=== PATIENT | female | born 1970 | race Caucasian/White ===

== ENCOUNTER → 2020-04-08 13:26 | Outpatient (BNVA) | payer MEDICAID, SELFPAY | PROVIDERS: PCP Family Medicine; Visit Provider Orthopaedic Surgery | DX: R20.0 Anesthesia of skin (principal); R20.2 Paresthesia of skin | CPT/HCPCS: 99212 ==

== ENCOUNTER 2020-04-26 14:18 | Emergency (ER) | payer MEDICAID, SELFPAY ==
[2020-04-26 14:30] VITALS: BP 136/58; PULSE 84; RESP 18; TEMP 37.1; O2SAT 97; BMI 35.4
--- NOTE | 2020-04-26 15:14 | CT_ITS ---
EXAMINATION: CT HEAD WITHOUT CONTRAST CLINICAL INFORMATION: Headache x 2 weeks. COMPARISON: None TECHNIQUE: Contiguous axial imaging was performed from the skull base to vertex without intravenous administration of contrast. This CT examination was performed using dose optimization techniques as appropriate, variously including the following: *Automated exposure control *Adjustment of mA and/or kV according to patient size (this includes techniques or standardized protocols for targeted exams where dose is matched to indication/reason for exam; i.e. extremities or head) *Use of iterative reconstruction technique DLP: 768 mGy-cm FINDINGS: There is no evidence of acute intracranial hemorrhage or territorial infarction. No abnormal mass effect or midline shift is seen. [place] to white matter differentiation is well preserved. No extra-axial fluid collections are identified. The ventricles are normal in size. There is no abnormal attenuation within the brain parenchyma. The osseous structures and soft tissues are normal. The mastoid air cells and visualized portions of the paranasal sinuses are well aerated. CT/CT head/brain wo con IMPRESSION: No acute intracranial process seen.
--- NOTE | 2020-04-26 15:15 | ED_ITS ---
HPI - Headache General Chief Complaint: Headache Stated Complaint: HEADACHE Time Seen by Provider: 04/26/20 14:40 History of Present Illness HPI Narrative: 49-year-old female who presents to the emergency department for evaluation of headache x2 weeks. The patient states that she has chronic headaches secondary to degenerative joint disease/disc disease of her neck. She states that she often gets pain in her neck and the back of her head chronically. She states that over the past 2 weeks she has had a gradual onset of a headache which is different than her usual headaches. She states that she has a band like pressure sensation around the top of her head. She states that this pain came on gradually over time and has gotten progressively worse. She states that the pain is 8/10 at its worst. She states the pain is a constant pressure-like pain. She had no associated nausea, vomiting, fever or chills. She states that she gets occasional tingling as a numbness in both of her arms. The patient also has been experiencing right lower jaw pain secondary to infected tooth. She did see her dentist today and had dental x-rays. She was told by her dentist that she does have a tooth infection and her dentist did prescribe an antibiotic for the patient which she has not picked up yet. The patient did talk to her PCP was concerned about the change in the patient's headache and refer the patient to the emergency department for evaluation. Patient states that she does have chronic pain secondary to degenerative joint and arthritis. She states that she takes ibuprofen, baclofen, gabapentin, oxycodone for her pain, and despite taking these medications she has not got any relief of her headache Related Data Previous Rx's Medication Instructions Recorded metoclopramide HCl [Reglan] 10 mg PO Q6H PRN #10 tab 04/26/20 Allergies Allergy/AdvReac Type Severity Reaction Status Date / Time Penicillins [PENICILLINS] Allergy Intermediate SWELLING Verified 04/26/20 14:30 Review of Systems Review of Systems: Yes all other systems are reviewed and are negative Constitutional: Constitutional: Reports as per HPI Eyes: Eyes: Reports as per HPI ENT: Reports as per HPI Cardiovascular: Cardiovascular: Reports as per HPI Respiratory: Respiratory: Reports as per HPI Gastrointestinal: Gastrointestinal: Reports as per HPI Genitourinary: Genitourinary: Reports as per HPI Musculoskeletal: Musculoskeletal: Reports as per HPI Integumentary/Breasts: Skin/Breast: Reports as per HPI Neurologic: Reports as per HPI and Reports Abnormal speech present Psychiatric: Psychiatric: Reports as per HPI Allergic/Immunologic: Allergic/Immunologic: Reports as per HPI PENDING SALE TO [facility] Past Medical History Medical History (Updated 04/26/20 @ 16:14 by Michael Gray MD) Hyperlipemia Hypertension NIDDY (non-insulin dependent diabetes mellitus in young) Surgical History (Updated 04/26/20 @ 14:31 by Ynes Beckham) History of hysterectomy Social History Social History Alcohol intake: never Smoking Status: Current every day smoker Use of substances other than those prescribed or required for medical reasons: No Advance Directives: No Advance Directives Information Provided: No Physical Exam Vital Signs: Vital Signs: Last Vital Signs Temp 98.7 F 04/26/20 14:30 Pulse 84 04/26/20 14:30 Resp 18 04/26/20 14:30 BP 136/58 L 04/26/20 14:30 Pulse Ox 97 04/26/20 14:30 Body Mass Index 35.4 Const: General: cooperative, no acute distress, alert and awake Orientation/consciousness: oriented to person and oriented to place Limitations: no limitations HENMT: Head: Yes normal to inspection, Yes normocephalic and Yes atraumatic Ears: external ears normal Teeth image: 1. Tender to palpation, no obvious dental caries Eyes: General: appearance normal, both eyes and all related structures Periorbital: periorbital findings normal Eyelids: Yes eyelids normal Conjunctivae: conjunctivae normal Sclerae: sclerae normal Corneas: corneas normal Pupils: Equal, round and reactive pupils present Direct Ophthalmoscopy: normal light reflex Neck: Neck: Yes normal visual inspection and Yes supple Lymphatic: no lymphadenopathy noted Chest: Chest palpation & inspection: normal inspection of the chest and normal palpation of entire chest wall Resp: Effort & Inspection: normal respiratory effort, abnormal respiratory pa ttern, no audible wheezes and no respiratory distress Auscultation: clear to auscultation bilaterally, no crackles, no rales, no rhonchi and no wheezes Cardio: Rate: regular rate Rhythm: regular rhythm Heart sounds: S1 normal heart sound present, S2 normal heart sound present and Murmur heart sound present GI: Inspection: No distended Palpation (GI): Soft to palpation, nontender, no guarding and No hepatosplenomegaly present Auscultation: normal bowel sounds : General: Yes no CVA tenderness Back/Spine/Pelvis: Back: no CVA tenderness Skin: General skin exam: no rashes or lesions noted Lesions: no lesions Rashes: no rashes Wounds: no wounds Neuro: General: oriented to person and oriented to place Cranial nerves: Yes CN's II-XII intact bilaterally, Yes Equal, round and reactive pupils present, Yes Bilaterally intact EOM present and Yes Midline tongue present Cognition (Neuro): normal cognition Speech: Abnormal speech present Gait exam (Neuro): Normal gait present Motor exam (neuro): 5/5 motor strength present throughout Extrem: General: Yes normal to inspection, Yes full ROM, Yes no pedal edema and Yes no calf tenderness Psych: Appearance: grossly normal Mental Status: mental status grossly normal Speech and movement: Clear speech present Affect: normal affect Thought process: Normal thought process present Course Course Course Narrative: The patient's CT scan of the brain revealed no acute process. My impression is that the patient's pain is related to migraine like syndrome triggered by her chronic pain and possibly her dental infection. The patient will be started on the following migraine regimen: Regular and 10 mg orally, Tylenol 1000 mg orally and hydroxyzine 25 mg orally every 6 hours. I also advised the patient to complete her antibiotic as prescribed per her dentist. MDM - Headache MDM Narrative Medical decision making narrative: 49-year-old female who presents emergency department for evaluation of gradual onset of a constant headache x2 weeks which is different from her usual headache syndrome and with a dental infection that was diagnosed by her dentist today. Physical examination did reveal tenderness with palpation of tooth number 32 but no obvious dental caries and no significant gingival swelling or evidence of abscess and a normal neurologic exam. At this time I suspect the patient's headache is related to her dental infection but not secondary to dental abscess. Given these severity and persistence of this headache, a CT scan of brain will be ordered to rule out bleed, mass effect or stroke as the cause for headache. The patient drove herself to the emergency department and does not want any pain medications at this time. Discharge Plan Discharge Clinical Impression: Headache Qualifiers: Headache type: unspecified Headache chronicity pattern: acute headache Intractability: not intractable Qualified Code(s): R51.9 - Headache, unspecified Patient Disposition: Home, Self-Care Instructions: Acute Headache (ED) Additional Instructions: The CT scan of your brain was normal, this is reassuring. Take the following medications together every 6 hours as needed for headache: Reglan 10 mg orally, extra-strength Tylenol 500 mg 2 pills orally, hydroxyzine 25 mg 1 pill orally. This combination of medications is usually very good for headaches but will make you very sleepy. After taking these medications, lay down in a dark quiet room for at least 1 hour and that should help the headache go away. Take the antibiotics as prescribed by your dentist. Follow-up with your doctor in 2 days for re-evaluation. Please return to the emergency department if her symptoms get worse or if you develop any new symptoms that are concerning to you. Prescriptions: New metoclopramide HCl [Reglan] 10 mg tablet 10 mg PO Q6H PRN (Reason: Headache, nausea, vomiting) Qty: 10 RF: 0
[2020-04-26 16:28] VITALS: BP 149/74; PULSE 96; RESP 19; TEMP 36.4; O2SAT 98
== END 2020-04-26 16:56 | disposition home or self-care (01) ==
PROVIDERS: Emergency Provider Emergency Medicine Emergency Medical Services; PCP Family Medicine
DX: R51.9 Headache, unspecified (principal); Z79.899 Other long term (current) drug therapy
CPT/HCPCS: 70450; 99284

== ENCOUNTER 2020-07-01 07:46 | Outpatient (REF) | payer MEDICAID, SELFPAY ==
--- NOTE | 2020-07-01 07:54 | EMG_ITS ---
Bilateral median and ulnar motor and sensory studies were performed. Bilateral radial sensory studies were performed. Paraspinal muscles were tested and some limb muscles were tested with a needle. IMPRESSION: 1. Moderate to severe bilateral median neuropathy across carpal tunnel, which was somewhat worse compared to her previous study in January of 2019. 2. Right Fabien Constantin anastomosis, normal variant. 3. No evidence of acute cervical radiculopathy. MD JACKELIN Mcgarry/NISH / [id number]
== END 2020-07-01 07:47 | disposition home or self-care (01) ==
LOC: HO.NEURO 07:46
PROVIDERS: PCP Family Medicine; Visit Provider Orthopaedic Surgery
DX: R20.0 Anesthesia of skin (principal); R20.2 Paresthesia of skin
CPT/HCPCS: 95886; 95911

== ENCOUNTER 2020-07-19 11:36 | Outpatient (REF) | payer MEDICAID, SELFPAY ==
--- NOTE | ~2020-07-19 | XR_ITS ---
EXAMINATION: XR THORACOLUMBAR SPINE CLINICAL INFORMATION: Back pain COMPARISON: None TECHNIQUE: 2 views of the thoracic spine FINDINGS: Bone alignment is normal. No fracture or dislocation is seen. There is multilevel degenerative spondylosis. Disc spaces are normal. There are postsurgical changes to the lower cervical spine. Paraspinal soft tissues are normal. XR/XR thoracic spine 2V IMPRESSION: Multilevel degenerative spondylosis.
== END 2020-07-19 11:37 | disposition home or self-care (01) ==
LOC: HO.XRAY 11:36
PROVIDERS: PCP Family Medicine; Visit Provider Family Medicine
DX: M54.9 Dorsalgia, unspecified (principal)
CPT/HCPCS: 72070

== ENCOUNTER → 2020-07-21 10:24 | Outpatient (BNVA) | payer MEDICAID, SELFPAY | PROVIDERS: PCP Family Medicine; Visit Provider Orthopaedic Surgery | DX: G56.02 Carpal tunnel syndrome, left upper limb (principal); G56.01 Carpal tunnel syndrome, right upper limb | CPT/HCPCS: 99212 ==

== ENCOUNTER 2020-08-12 12:49 | Day surgery (SDC) | payer MEDICAID, SELFPAY ==
--- NOTE | 2020-08-12 11:55 | W.PM.OPN ---
Operative Note Operative Note Date of Service: 08/12/20 Narrative: Preop diagnosis: 1. Right Carpal tunnel syndrome Postop diagnosis: 1. Right Carpal tunnel syndrome Procedure: 1. Right Carpal tunnel release Surgeon: Ashley Villagran MD Anesthesia: local block using 1% lidocaine with epinephrine Findings: Thickened transverse carpal ligament. EBL: Less than 5 mL Specimens: None Complications: None Disposition: Brought to recovery room in stable condition Plan: Follow-up for 7-10 days for wound check and suture removal Indications: The patient is 50 years old, with right carpal tunnel syndrome that has been unresponsive to nonoperative management. The risks and benefits of operative treatment including but not limited to risk of damage to blood vessels, nerves, tendons, infection, persistent pain, persistent symptoms, or possible need for additional surgery were discussed with the patient and the patient wishes to proceed with surgery. Procedure: Once consent was obtained a local block was performed using a combination of 1% lidocaine with epinephrine. The patient was then brought back to the operating suite and placed on the operative table in supine position. A tourniquet was applied to the proximal aspect of the right upper extremity and the limb was prepped and draped in a standard surgical fashion. Once assured that we had a good block, a 1.5 cm longitudinal incision was made centered over the right carpal tunnel. The incision was made through the skin to the subcutaneous tissues using a #15 blade. Dissection was made down to the level of the transverse carpal ligament with care being taken to protect the palmar cutaneous nerve. Once the transverse carpal ligament was clearly visualized, a longitudinal incision was made in the transverse carpal ligament 1st using a #15 blade, then using tenotomy scissors under direct visualization. Care was taken to look for and protect the motor branch of the median nerve when seen in this area. Once satisfied with our carpal tunnel release the wound was copiously irrigated with normal saline and hemostasis was obtained with a brief period of local pressure. The skin edges were reapproximated with some 5.0 nylon suture material and a sterile dressing was applied. The patient appears to have tolerated the procedure well and with no complications. All digits were well vascularized at the conclusion of the case.
[2020-08-12 13:07] VITALS: BP 115/50; PULSE 91; RESP 18; TEMP 36.9; O2SAT 97; BMI 38.9
[2020-08-12 16:37] VITALS: BP 145/79; PULSE 81; RESP 16; TEMP 36.6; O2SAT 97
--- NOTE | 2020-08-12 16:46 | MHC.SHP ---
Pre-Procedural Eval Section B Chief Complaint: carpal tunnel syndrome,right Allergies: Allergies Allergy/AdvReac Type Severity Reaction Status Date / Time Penicillins [PENICILLINS] Allergy Intermediate SWELLING Verified 08/12/20 13:00 Plan I have reviewed the history and physical and performed a pertinent physical examination on my patient. No changes have occurred unless specified.
== END 2020-08-12 16:46 | disposition home or self-care (01) ==
PROVIDERS: PCP Family Medicine; Visit Provider Orthopaedic Surgery
PROC: (CPT 64721; principal; 2020-08-12 15:00)
DX: G56.01 Carpal tunnel syndrome, right upper limb (principal); I10 Essential (primary) hypertension; F31.9 Bipolar disorder, unspecified; E11.9 Type 2 diabetes mellitus without complications; Z79.84 Long term (current) use of oral hypoglycemic drugs; F17.210 Nicotine dependence, cigarettes, uncomplicated; Z88.0 Allergy status to penicillin; Z79.899 Other long term (current) drug therapy
CPT/HCPCS: 64721

== ENCOUNTER 2020-08-20 18:00 | Outpatient (REF) | payer MEDICAID, SELFPAY ==
--- NOTE | ~2020-08-20 | MR_ITS ---
EXAMINATION: MR ANGIOGRAPHY BRAIN WITHOUT CONTRAST CLINICAL INFORMATION: Sister with cerebral aneurysm. COMPARISON: CT head 04/26/2020. CT head 05/13/2014. TECHNIQUE: Unenhanced 3-D [id number] MR angiography of the head with multiple 3-D reformatted images processed on the technologist workstation under concurrent supervision. Stenoses are made with reference to the NASCET criteria unless otherwise specified. FINDINGS: The incidentally visualized brain demonstrates normal sulcal and ventricular configuration and no gross parenchymal lesions. Right vertebral artery is dominant. An anterior communicating artery is noted. Incidental note is made of a diminutive vessel originating from the proximal A2 segment of the left anterior cerebral artery coursing in close proximity to the A1 segment of the left anterior cerebral artery which in consideration of partial volume averaging is distinct from a vascular penetration though has this appearance prior to close scrutiny. No intracranial aneurysms, stenoses or occlusions are visualized. Multiple segmented volumetric maximum intensity projection images confirm findings made upon review of the axial image data set. MR/MR angio head wo con IMPRESSION: Normal MR angiography of the head. No intracranial aneurysms.
== END 2020-08-20 18:01 | disposition home or self-care (01) ==
LOC: HO.MRI 18:00
PROVIDERS: Visit Provider Family Medicine
DX: Z82.49 Family history of ischemic heart disease and other diseases of the circulatory system (principal)
CPT/HCPCS: 70544

== ENCOUNTER → 2020-08-23 12:51 | Outpatient (BNVA) | payer MEDICAID, SELFPAY | PROVIDERS: PCP Family Medicine; Visit Provider Physician Assistant | DX: Z98.890 Other specified postprocedural states (principal) | CPT/HCPCS: 99212 ==

== ENCOUNTER 2020-08-26 08:06 | Outpatient (REF) | payer MEDICAID, SELFPAY ==
--- NOTE | ~2020-08-26 | XR_ITS ---
EXAMINATION: XR AP STANDING VIEWS OF BOTH KNEES WELL 2 VIEWS OF THE RIGHT KNEE CLINICAL INFORMATION: Pain. COMPARISON: MRI of 06/07/2019. TECHNIQUE: AP standing views of both knees. Lateral and sunrise views of the right knee. FINDINGS: There is no evidence of acute fracture or dislocation of the right or left knees seen on AP standing view. Joint spaces are maintained. [place] and lateral views of the right knee do not demonstrate any evidence of effusion. The patellofemoral joint space is maintained. There is mild spurring of the undersurface of the patella. There is a large patella spurs at insertion of the quadriceps tendon. XR/XR knee standing BI IMPRESSION: Mild degenerative change patellofemoral joint of the right knee. Knee joint spaces maintained.
--- NOTE | ~2020-08-26 | XR_ITS ---
EXAMINATION: XR AP STANDING VIEWS OF BOTH KNEES WELL 2 VIEWS OF THE RIGHT KNEE CLINICAL INFORMATION: Pain. COMPARISON: MRI of 06/07/2019. TECHNIQUE: AP standing views of both knees. Lateral and sunrise views of the right knee. FINDINGS: There is no evidence of acute fracture or dislocation of the right or left knees seen on AP standing view. Joint spaces are maintained. [place] and lateral views of the right knee do not demonstrate any evidence of effusion. The patellofemoral joint space is maintained. There is mild spurring of the undersurface of the patella. There is a large patella spurs at insertion of the quadriceps tendon. XR/XR knee RT 2V IMPRESSION: Mild degenerative change patellofemoral joint of the right knee. Knee joint spaces maintained.
== END 2020-08-26 08:07 | disposition home or self-care (01) ==
LOC: HO.HOSX 08:06
PROVIDERS: Visit Provider Orthopaedic Surgery
DX: M65.4 Radial styloid tenosynovitis [de Quervain] (principal); M25.561 Pain in right knee; I10 Essential (primary) hypertension; E78.5 Hyperlipidemia, unspecified; F17.210 Nicotine dependence, cigarettes, uncomplicated; Z88.0 Allergy status to penicillin; Z91.81 History of falling
CPT/HCPCS: 20551; 73560; 73565; 99212; J1100

== ENCOUNTER 2020-08-30 17:11 | Outpatient (REF) | payer MEDICAID, SELFPAY ==
--- NOTE | ~2020-08-30 | XR_ITS ---
EXAMINATION: XR WRIST, LEFT CLINICAL INFORMATION: Pain COMPARISON: None TECHNIQUE: PA, lateral, and oblique views of the left wrist. FINDINGS: The bones and soft tissues are normal. No fracture. Alignment is anatomic with normal joint spaces. No erosions or abnormal soft tissue calcifications. XR/XR wrist LT min 3V IMPRESSION: Normal left wrist.
== END 2020-08-30 17:12 | disposition home or self-care (01) ==
LOC: HO.HOSX 17:11
PROVIDERS: Visit Provider Orthopaedic Surgery
DX: M25.532 Pain in left wrist (principal)
CPT/HCPCS: 73110

== ENCOUNTER → 2020-08-31 09:49 | Outpatient (BNVA) | payer MEDICAID, SELFPAY | PROVIDERS: PCP Family Medicine; Visit Provider Orthopaedic Surgery | DX: G56.01 Carpal tunnel syndrome, right upper limb (principal); G56.02 Carpal tunnel syndrome, left upper limb; M65.4 Radial styloid tenosynovitis [de Quervain] | CPT/HCPCS: 99212 ==

== ENCOUNTER → 2020-09-23 08:51 | Outpatient (REF) | payer MEDICAID, SELFPAY | LOC: HO.SL 08:51 | PROVIDERS: PCP Family Medicine; Visit Provider Family Medicine | DX: G47.33 Obstructive sleep apnea (adult) (pediatric) (principal); R51.9 Headache, unspecified; R06.83 Snoring | CPT/HCPCS: 95806 ==

== ENCOUNTER 2020-09-27 16:29 | Outpatient (REF) | payer MEDICAID, SELFPAY | END 2020-09-27 16:30 | disposition home or self-care (01) | LOC: HO.HOSX 16:29 | PROVIDERS: Visit Provider Orthopaedic Surgery | DX: Z13.89 Encounter for screening for other disorder (principal) ==

== ENCOUNTER 2020-10-04 14:20 | Outpatient (REF) | payer MEDICAID, SELFPAY ==
--- NOTE | ~2020-10-04 | MM_ITS ---
EXAMINATION: MM SCREENING DIGITAL BREAST TOMOSYNTHESIS, BILATERAL CLINICAL INFORMATION: Screening. Asymptomatic. The lifetime risk of breast cancer based on the Tyrer-Cuzick Model is 7%. COMPARISON: Mammography: 11/17/2014 07/10/2013 TECHNIQUE: Digital breast tomosynthesis is performed in both the craniocaudal and mediolateral oblique views along with computer-aided detection (CAD). Synthesized 2D images are generated from the tomosynthesis. FINDINGS: There are scattered areas of fibroglandular density (ACR BI-RADS breast composition Category b). There are no significant masses, abnormal calcifications, or other abnormalities. Parenchymal pattern is similar to prior exams. No significant changes. MM/MM tomosynthesis screening BI IMPRESSION: No mammographic evidence of malignancy. ASSESSMENT: BI-RADS 1: Negative RECOMMENDATION: Routine annual mammography screening. This patient's information was entered into a reminder system with a target due date for their next mammogram.
== END 2020-10-04 14:21 | disposition home or self-care (01) ==
LOC: HO.MAMMO 14:20
PROVIDERS: Visit Provider Family Medicine
DX: Z12.31 Encounter for screening mammogram for malignant neoplasm of breast (principal)
CPT/HCPCS: 77063; 77067

== ENCOUNTER → 2020-12-01 15:08 | Outpatient (BNVA) | payer MEDICAID, SELFPAY | PROVIDERS: PCP Family Medicine; Visit Provider Orthopaedic Surgery | DX: G56.03 Carpal tunnel syndrome, bilateral upper limbs (principal); M65.4 Radial styloid tenosynovitis [de Quervain] | CPT/HCPCS: 99212 ==

== ENCOUNTER 2020-12-30 10:53 | Day surgery (SDC) | payer MEDICAID, SELFPAY ==
[2020-12-30 11:19] VITALS: BMI 38.9
[2020-12-30 11:20] VITALS: BP 143/65; PULSE 88; RESP 18; TEMP 36.1; O2SAT 97
[2020-12-30 11:42] LABS: Glucose, Whole Blood 142 mg/dL (60-115)
--- NOTE | 2020-12-30 11:47 | MHC.SHP ---
Pre-Procedural Eval Section A Date of Service: 12/30/20 Section B Chief Complaint: radial styloid tenosynovitis Allergies: Allergies Allergy/AdvReac Type Severity Reaction Status Date / Time Penicillins [PENICILLINS] Allergy Intermediate SWELLING Verified 12/30/20 11:19 Plan I have reviewed the history and physical and performed a pertinent physical examination on my patient. No changes have occurred unless specified.
--- NOTE | 2020-12-30 11:48 | W.PM.OPN ---
Operative Note Operative Note Date of Service: 12/30/20 Narrative: Operative Note Preop diagnosis: 1. Left DeQuervain's tenosynovitis Postop diagnosis: 1. Left DeQuervain's tenosynovitis Procedure: 1. Left 1st dorsal compartment release 2. Tenosynovectomy of the APL and EPB tendons within the 1st dorsal compartment Surgeon: Ashley Villagran MD Anesthesia: local block using 1% lidocaine with epinephrine Findings: Thickened 1st dorsal compartment. Hypertrophic tenosynovium about the APL and EPB tendons EBL: Less than 5 mL Tourniquet time: None Specimens: None Complications: None Disposition: Brought to recovery room in stable condition Plan: Follow-up for 7-10 days for wound check and suture removal Indications: The patient is 50 years old, with left DeQuervain's tenosynovitis that has been unresponsive to nonoperative management. The risks and benefits of operative treatment including but not limited to risk of damage to blood vessels, nerves, tendons, infection, persistent pain, persistent symptoms, recurrence or possible need for additional surgery were discussed with the patient and the patient wishes to proceed with surgery. Procedure: Once consent was obtained a local block was performed in the preop area using a combination of 1% lidocaine with epinephrine. The patient was then brought back to the operating suite and placed on the operative table in supine position. A tourniquet was applied to the proximal aspect of the left upper extremity and the limb was prepped and draped in a standard surgical fashion. Once assured that we had a good block, a 1.5 cm longitudinal incision was made centered over the 1st dorsal compartment as it passed over the radial styloid of the left wrist. The incision was made through the skin to the subcutaneous tissues using a #15 blade. Careful dissection was made down to the level of the 1st dorsal compartment using tenotomy scissors, with care being taken to protect the nearby branches of the superficial radial nerve. Once the 1st dorsal compartment was exposed, A longitudinal incision was made in the 1st dorsal compartment 1st using a #15 blade, then using tenotomy scissors under direct visualization. The 1st dorsal compartment was noted to be thickened. Following our release, we saw smooth gliding abductor pollicis longus and extensor pollicis brevis tendons. There was hypertrophic tenosynovium about the APL and EPB tendons. I then performed a tenosynovectomy carefully excising the inflamed tenosynovium from the tendons using tenotomy scissors. Once satisfied with our 1st dorsal compartment release the wound was copiously irrigated with normal saline and hemostasis was obtained with a brief period of local pressure. The skin edges were reapproximated with some 5.0 nylon suture material. A sterile dressing was applied. The patient appears to have tolerated the procedure well and with no complications. All digits were well vascularized at the conclusion of the case.
[2020-12-30 13:20] VITALS: BP 127/65; PULSE 80; RESP 16; TEMP 36.1; O2SAT 97
== END 2020-12-30 13:50 | disposition home or self-care (01) ==
PROVIDERS: PCP Family Medicine; Visit Provider Orthopaedic Surgery
PROC: (CPT 25116; principal; 2020-12-30 12:10)
DX: M65.4 Radial styloid tenosynovitis [de Quervain] (principal); M67.842 Other specified disorders of synovium, left hand; Z88.0 Allergy status to penicillin; I10 Essential (primary) hypertension; E11.9 Type 2 diabetes mellitus without complications; Z79.84 Long term (current) use of oral hypoglycemic drugs; Z79.899 Other long term (current) drug therapy
CPT/HCPCS: 25116; 82947

== ENCOUNTER → 2021-08-02 13:35 | Outpatient (BNVA) | payer MEDICAID, SELFPAY | PROVIDERS: PCP Family Medicine; Referring Provider Family Medicine; Visit Provider Nurse Practitioner Family | DX: Z01.818 Encounter for other preprocedural examination (principal); K59.00 Constipation, unspecified | CPT/HCPCS: 99202 ==

== ENCOUNTER 2021-09-06 14:48 | Outpatient (REF) | payer MEDICAID, SELFPAY ==
--- NOTE | ~2021-09-06 | XR_ITS ---
EXAMINATION: XR HIP, RIGHT CLINICAL INFORMATION: Pain COMPARISON: Previous x-ray April 2019 TECHNIQUE: Two views of the right hip. FINDINGS: Bone alignment is normal. No fracture or dislocation is seen. There is mild arthritis of the right hip joint with joint space narrowing and osteophyte formation. Soft tissues are unremarkable. XR/XR hip RT min 2V IMPRESSION: Mild right hip arthritis.
--- NOTE | ~2021-09-06 | XR_ITS ---
EXAMINATION: XR LUMBOSACRAL SPINE WITH OBLIQUES CLINICAL INFORMATION: Low back pain COMPARISON: Previous exam most recent April 2019 TECHNIQUE: AP, both oblique, and lateral views of the lumbar spine. Lateral view of the lumbosacral junction. FINDINGS: Bone alignment is normal. No fracture or dislocation is seen. There is degenerative disc disease at L4-L5 and L5-S1. There is lower lumbar spine facet arthritis. There is degenerative spondylosis of the upper lumbar spine. XR/XR lumbar spine 4V min IMPRESSION: Degenerative changes, greatest at L4-L5 and L5-S1.
== END 2021-09-06 14:49 | disposition home or self-care (01) ==
LOC: HO.XRAY 14:48
PROVIDERS: Absent Provider Family Medicine; PCP Family Medicine; Visit Provider Internal Medicine
DX: M54.50 Low back pain, unspecified (principal); M25.551 Pain in right hip
CPT/HCPCS: 72110; 73502

== ENCOUNTER 2021-10-14 07:34 | Outpatient (REF) | payer MEDICAID, SELFPAY ==
--- NOTE | ~2021-10-14 | US_ITS ---
EXAMINATION: US ABDOMEN COMPLETE CLINICAL INFORMATION: Fatty change of liver. COMPARISON: Ultrasound abdomen 04/18/2019 and 07/07/2014. TECHNIQUE: Real-time imaging of the abdominal viscera. FINDINGS: PANCREAS: Normal. ABDOMINAL AORTA: The proximal, mid, and distal segments are normal in caliber. INFERIOR VENA CAVA: Visualized portions are normal. LIVER: The liver is normal in size. The liver contour is normal. There is diffuse increased liver parenchymal echogenicity, consistent with hepatic steatosis. No focal hepatic lesion. There is no intrahepatic biliary duct dilatation seen. GALLBLADDER: Normal. The gallbladder is physiologically distended without evidence of stones, sludge, polyps, wall thickening or pericholecystic fluid. COMMON BILE DUCT: Normal in caliber measuring 0.3 cm in diameter. RIGHT KIDNEY: Normal. No hydronephrosis. No renal calculi or focal parenchymal lesions. The kidney measures 11.5 cm in maximum dimension. LEFT KIDNEY: Normal. No hydronephrosis. No renal calculi or focal parenchymal lesions. The kidney measures 11.8 cm in maximum dimension. SPLEEN: Normal. The spleen measures 10.7 cm in maximum dimension. FREE FLUID: None. US/US abdomen complete IMPRESSION: Echogenic liver parenchyma compatible with hepatic steatosis. No focal liver lesions. There is an otherwise unremarkable appearance of the remaining abdominal structures.
== END 2021-10-14 07:35 | disposition home or self-care (01) ==
LOC: HO.US 07:34
PROVIDERS: Visit Provider Family Medicine
DX: K76.0 Fatty (change of) liver, not elsewhere classified (principal)
CPT/HCPCS: 76700

== ENCOUNTER 2022-02-14 12:22 | Day surgery (SDC) | payer MEDICAID, SELFPAY ==
[2022-02-09 12:19] VITALS: BMI 39.4
--- NOTE | 2022-02-13 12:02 | HO.ANESPROP2 ---
Documented by User: Catrachita La NP 02/13/22 12:03 HPI - Anesthesia Eval Consult details Narrative: 51yo F for Colonoscopy Pt did not stop Ibuprofen 600mg QID. Dr Quispe aware. OK to proceed. [facility] Active Problems Active Problems: All Active Problems (Updated 08/31/20 @ 10:50 by Ashley Villagran MD) De Quervain's tenosynovitis, left (Acute) Status post carpal tunnel release (Acute) Numbness and tingling in both hands (Acute) Carpal tunnel syndrome of left wrist (Acute) Carpal tunnel syndrome of right wrist (Acute) Past Medical History Medical History ADHD Anxiety Bipolar 1 disorder Depression Hyperlipemia Hypertension NIDDY (non-insulin dependent diabetes mellitus in young) Surgical History Surgical History History of back surgery History of hysterectomy Hx of neck surgery Hx of tonsillectomy Social History Social History Alcohol intake: never Patient Tobacco Use Status: Current everyday Tobacco user Cigarettes Per Day: 20 Smoked in Last 30 Days: Yes Patient Interested in Nicotine Replacement: No Substance Use Frequency: Occasionally Are you DNR?: No Advance Directives: No Advance Directives Information Provided: Yes Nutrition Risks: No Nutritional Risk Current occupational status: disabled Current occupation: right handed/ Meds Allergies Allergy/AdvReac Type Severity Reaction Status Date / Time Penicillins [PENICILLINS] Allergy Intermediate SWELLING Verified 12/30/20 11:19 Home Medications Medication Instructions Recorded Confirmed Last Taken Type acetaminophen 650 mg 1 tab PO Q8H PRN fever 08/12/20 08/12/20 Unknown History tablet,extended release (Arthritis Pain Relief (acetaminophen) ER) albuterol sulfate 90 mcg/actuation 2 puff PO Q4-6H PRN wheezing 08/12/20 08/12/20 Unknown History aerosol inhaler (ProAir HFA) atorvastatin 40 mg tablet 1 tab PO BEDTIME 08/12/20 08/12/20 Unknown History baclofen 10 mg tablet 2 tab PO TID PRN muscle spasm 08/12/20 08/12/20 Unknown History bupropion HCl 200 mg tablet,12 hr 1 tab PO BID 08/12/20 08/12/20 Unknown History sustained-release (Wellbutrin SR) buspirone 5 mg tablet 1 tab PO BID 08/12/20 08/12/20 Unknown History citalopram 20 mg tablet (Celexa) mg PO 08/12/20 Unknown History clonidine HCl 0.1 mg tablet PO 08/12/20 Unknown History conjugated estrogens 0.625 mg/gram vaginal 08/12/20 Unknown History vaginal cream (Premarin) duloxetine 30 mg capsule,delayed 1 cap PO DAILY 08/12/20 08/12/20 Unknown History release (Cymbalta) duloxetine 60 mg capsule,delayed 1 cap PO DAILY 08/12/20 08/12/20 Unknown History release (Cymbalta) gabapentin 600 mg tablet 1 tab PO QID 08/12/20 08/12/20 Unknown History hydroxyzine pamoate 25 mg capsule 1 cap PO BID PRN Dizziness 08/12/20 08/12/20 Unknown History hydroxyzine pamoate 25 mg capsule 1 cap PO BID PRN Dizziness 08/12/20 08/12/20 Unknown History (Vistaril) ibuprofen 600 mg tablet 1 tab PO Q6H PRN pain 08/12/20 08/12/20 Unknown History lamotrigine 200 mg tablet 2 tab PO BEDTIME 08/12/20 08/12/20 Unknown History lisinopril 40 mg tablet 1 tab PO QAM 08/12/20 08/12/20 Unknown History metformin 500 mg tablet 1 tab PO QAM 08/12/20 08/12/20 Unknown History omega-3 fatty acids-fish oil 340 1 cap PO BID 08/12/20 08/12/20 Unknown History mg-1,000 mg capsule (Fish Oil) oxycodone 5 mg tablet 1 tab PO 5XD PRN severe pain 08/12/20 08/12/20 Unknown History sumatriptan succinate 25 mg tablet 1 tab PO migraine 08/12/20 Unknown History tolterodine 4 mg capsule,extended 1 cap PO QAM 08/12/20 08/12/20 Unknown History release 24 hr lisdexamfetamine 40 mg capsule 40 mg PO DAILY 08/02/21 Unknown History (Cj) Exam Exam Date and Time: February 13, 2022 1202 Height,Weight and Vital Signs: Height 5 ft 3 in Weight 101.151 kg Assessment and Plan Assessment Anesthesia Assessment: Chart Reviewed Documented by User: Trisha Gomez MD 02/14/22 12:59 PMFSH Past Medical History Medical History ADHD Anxiety Bipolar 1 disorder Depression Hyperlipemia Hypertension NIDDY (non-insulin dependent diabetes mellitus in young) Surgical History Surgical History History of back surgery History of hysterectomy Hx of neck surgery Hx of tonsillectomy History of Problems with Anesthesia: No Social History Social History Alcohol intake: never Patient Tobacco Use Status: Current everyday Tobacco user Cigarettes Per Day: 20 Smoked in Last 30 Days: Yes Patient Interested in Nicotine Replacement: No Substance Use Frequency: Occasionally Are you DNR?: No Advance Directives: No Advance Directives Information Provided: Yes Nutrition Risks: No Nutritional Risk Current occupational status: disabled Current occupation: right handed/ Meds Allergies Allergy/AdvReac Type Severity Reaction Status Date / Time Penicillins [PENICILLINS] Allergy Intermediate SWELLING Verified 12/30/20 11:19 Home Medications Medication Instructions Recorded Confirmed Last Taken Type acetaminophen 650 mg 1 tab PO Q8H PRN fever 08/12/20 08/12/20 Unknown History tablet,extended release (Arthritis Pain Relief (acetaminophen) ER) albuterol sulfate 90 mcg/actuation 2 puff PO Q4-6H PRN wheezing 08/12/20 08/12/20 Unknown History aerosol inhaler (ProAir HFA) atorvastatin 40 mg tablet 1 tab PO BEDTIME 08/12/20 08/12/20 Unknown History baclofen 10 mg tablet 2 tab PO TID PRN muscle spasm 08/12/20 08/12/20 Unknown History bupropion HCl 200 mg tablet,12 hr 1 tab PO BID 08/12/20 08/12/20 Unknown History sustained-release (Wellbutrin SR) buspirone 5 mg tablet 1 tab PO BID 08/12/20 08/12/20 Unknown History citalopram 20 mg tablet (Celexa) mg PO 08/12/20 Unknown History clonidine HCl 0.1 mg tablet PO 08/12/20 Unknown History conjugated estrogens 0.625 mg/gram vaginal 08/12/20 Unknown History vaginal cream (Premarin) duloxetine 30 mg capsule,delayed 1 cap PO DAILY 08/12/20 08/12/20 Unknown History release (Cymbalta) duloxetine 60 mg capsule,delayed 1 cap PO DAILY 08/12/20 08/12/20 Unknown History release (Cymbalta) gabapentin 600 mg tablet 1 tab PO QID 08/12/20 08/12/20 Unknown History hydroxyzine pamoate 25 mg capsule 1 cap PO BID PRN Dizziness 08/12/20 08/12/20 Unknown History hydroxyzine pamoate 25 mg capsule 1 cap PO BID PRN Dizziness 08/12/20 08/12/20 Unknown History (Vistaril) ibuprofen 600 mg tablet 1 tab PO Q6H PRN pain 08/12/20 08/12/20 Unknown History lamotrigine 200 mg tablet 2 tab PO BEDTIME 08/12/20 08/12/20 Unknown History lisinopril 40 mg tablet 1 tab PO QAM 08/12/20 08/12/20 Unknown History metformin 500 mg tablet 1 tab PO QAM 08/12/20 08/12/20 Unknown History omega-3 fatty acids-fish oil 340 1 cap PO BID 08/12/20 08/12/20 Unknown History mg-1,000 mg capsule (Fish Oil) oxycodone 5 mg tablet 1 tab PO 5XD PRN severe pain 08/12/20 08/12/20 Unknown History sumatriptan succinate 25 mg tablet 1 tab PO migraine 08/12/20 Unknown History tolterodine 4 mg capsule,extended 1 cap PO QAM 08/12/20 08/12/20 Unknown History release 24 hr lisdexamfetamine 40 mg capsule 40 mg PO DAILY 08/02/21 Unknown History (Vyvanse) Exam Airway Mallampati Class: III (Edentulous upper) TM Dist: >3cm Neck ROM: Full Denture: Upper Loose/Missing/Broken Teeth: Yes and Upper Heart: RRR Lungs: CTA Assessment and Plan Assessment Anesthesia Assessment: Anesthesia Plan Discussed Final Anesthetic Review History of Problems with Anesthesia: No NPO: Yes ASA Class: III Final Preanesthetic Review: Meds/Allgs Chart Reviewed, Consent Obtained/Reviewed and Anes Risks/Benef Reviewed Patient Risk: Intermediate Procedure Risk: Low Anesthetic Plan Anesthetic Plan: MAC: Disposition: Standard PACU
--- NOTE | 2022-02-14 12:33 | MHC.SHP ---
Pre-Procedural Eval Section A Date of Service: 02/14/22 Section B Chief Complaint: screening Details of Present Illness: 51y.o F with average risk for colon cancer. No hx of colon cancer or polyps in FDRs. Here for a screening colonoscopy. Prepped with dulcolax/miralax. BM still not clear, having liquidy brown stools. Relevant Social History: Tobacco Use (Former) Present Medications: see Short Stay Collaborative assessment Medical History: Significant History (Bipolar disorder, depression, HLD, T2DM ) History of Previous Operations: Relevant previous surgery/procedure and date(s) (History of back surgery History of hysterectomy Hx of neck surgery Hx of tonsillectomy) Allergies: Allergies Allergy/AdvReac Type Severity Reaction Status Date / Time Penicillins [PENICILLINS] Allergy Intermediate SWELLING Verified 12/30/20 11:19 Review of Systems Review of Systems Comment: 10 point ROS negaitve unless mentioned above. Exam Surgical H&P Exam: Normal: HEENT, Normal: Heart, Normal: Lungs, Normal: Extremities, Normal: Abdomen, Normal: Skin and Normal: Neurological Plan Diagnosis/Plan: Unchanged I have reviewed the history and physical and performed a pertinent physical examination on my patient. No changes have occurred unless specified. Will proceed after fleet's enema.
[2022-02-14] MEDS: Lactated Ringers 1,000 ML 100 ML IVCONT (12:44)
[2022-02-14 13:05] VITALS: BP 159/82; PULSE 76; RESP 20; TEMP 36.8; O2SAT 98
[2022-02-14 13:06] LABS: Glucose, Whole Blood 110 mg/dL (60-115)
--- NOTE | 2022-02-14 13:07 | P.OP_ITS ---
Operative Note Operative Note Date of Service: 02/14/22 Narrative: Procedure: Colonoscopy Indication: Screening Endoscopist: Alyssa Quispe MD Anesthesia Provider: Anesthesia type: MAC Instrument: Olympus [id number]-[id number] Consent: Indication, risks vs benefits, and alternatives were discussed with the patient who gave written informed consent to proceed. Monitoring: EKG, pulse, pulse oximetry and blood pressure were monitored throughout the procedure. Medications: Please see anesthesia flowsheet. Procedure: The patient was brought to the procedure room and placed in the left lateral decubitus position. IV medications were administered by the anesthesia provider in attendance. A digital rectal exam was performed which was abnormal due to finding of hemorrhoids. The colonoscope was then inserted through the anus and advanced through the colon to the cecum at 85 cm. Mucosa was carefully examined under high definition white light as the instrument was slowly withdrawn in a retrograde panoramic fashion. Retroflexion was performed in rectum. The procedure was somewhat difficult due to looping in sigmoid colon. There were no immediate obvious complications. The quality of the prep was BBPS: 1+2+3 = inadequate due to score of 1 in R colon. Withdrawal time 13 minutes. Limitations: Poor prep. Findings: Mucosa: Normal to cecum to the extent visualised. Protruding lesions: * 2 sessile polyp of size [4-7] mm in sigmoid colon. The polyps were completely removed with a cold snare and retrieved. * 1 sessile polyp of size 16 mm in distal sigmoid colon was NOT removed due to theoretical risk of combustion during use of electrocautery in a poor prep colon. * Medium external hemorrhoids without stigmata of recent bleeding. Impression: 1. Poor prep in R colon. 2. Total of 2 polyps removed from sigmoid colon. 3. A 15-16 mm sessile polyp in distal sigmoid colon not removed as above. 3. External hemorrhoids Recommendations: - Follow path results. - Repeat colonoscopy is being scheduled. Patient will be advised on CLD x 2 days and split prep.
[2022-02-14] MEDS: Sodium Phosphate,Mono-Dibasic 133 ML ENEMA PR (13:14)
[2022-02-14 14:35] VITALS: BP 109/63; PULSE 68; RESP 16; TEMP 36.9; O2SAT 100
[2022-02-14 14:54] VITALS: BP 119/68; PULSE 70; RESP 17; TEMP 36.9; O2SAT 96
== END 2022-02-14 15:37 | disposition home or self-care (01) ==
PROVIDERS: PCP Family Medicine; Visit Provider Internal Medicine
PROC: 0DJD8ZZ Inspection of Lower Intestinal Tract, Via Natural or Artificial Opening Endoscopic (ICD-10-PCS; CPT 45378; principal; 2022-02-14 13:30)
DX: Z12.11 Encounter for screening for malignant neoplasm of colon (principal); K63.5 Polyp of colon; K64.4 Residual hemorrhoidal skin tags; K59.00 Constipation, unspecified; G47.33 Obstructive sleep apnea (adult) (pediatric); F31.9 Bipolar disorder, unspecified; F41.9 Anxiety disorder, unspecified; F90.9 Attention-deficit hyperactivity disorder, unspecified type; I10 Essential (primary) hypertension; E11.9 Type 2 diabetes mellitus without complications; E78.5 Hyperlipidemia, unspecified; Z79.84 Long term (current) use of oral hypoglycemic drugs; Z79.899 Other long term (current) drug therapy; Z88.0 Allergy status to penicillin; F17.210 Nicotine dependence, cigarettes, uncomplicated
CPT/HCPCS: 45385; 82947; 88305

== ENCOUNTER → 2022-03-21 11:55 | Outpatient (BNVA) | payer MEDICAID, SELFPAY | PROVIDERS: PCP Family Medicine; Visit Provider Nurse Practitioner Family | DX: K59.03 Drug induced constipation (principal); Z12.11 Encounter for screening for malignant neoplasm of colon | CPT/HCPCS: 99212 ==

== ENCOUNTER 2022-10-12 09:14 | Day surgery (SDC) | payer MEDICAID, SELFPAY ==
--- NOTE | 2022-10-11 12:18 | HO.ANESPROP2 ---
HPI - Anesthesia Eval Consult details Narrative: 52yo F for Colonoscopy s/p same 02/2022 with T[facility]A PMFSH Active Problems Active Problems: All Active Problems (Updated 08/07/22 @ 14:04 by Karla Moore, ROBBIE) Numbness and tingling in both hands (Acute) Carpal tunnel syndrome of left wrist (Acute) Carpal tunnel syndrome of right wrist (Acute) Status post carpal tunnel release (Acute) De Quervain's tenosynovitis, left (Acute) Past Medical History Medical History ADHD Anxiety Bipolar 1 disorder Depression Hx of adenomatous colonic polyps Hyperlipemia Hypertension NIDDY (non-insulin dependent diabetes mellitus in young) Sleep apnea Surgical History Surgical History History of back surgery History of carpal tunnel surgery of right wrist History of hysterectomy History of surgery Hx of colonoscopy Hx of neck surgery Hx of tonsillectomy History of Problems with Anesthesia: No Social History Social History Alcohol intake: never Patient Tobacco Use Status: Current everyday Tobacco user Cigarettes Per Day: 20 Current occupational status: disabled Current occupation: right handed/ Meds Allergies Allergy/AdvReac Type Severity Reaction Status Date / Time Penicillins [PENICILLINS] Allergy Intermediate SWELLING Verified 10/10/22 10:27 Home Medications Medication Instructions Recorded Confirmed Last Taken Type acetaminophen 650 mg 1 tab PO Q8H PRN fever 08/12/20 10/10/22 02/14/22 04:00 History tablet,extended release (Arthritis Pain Relief (acetaminophen) ER) albuterol sulfate 90 mcg/actuation 2 puff PO Q4-6H PRN wheezing 08/12/20 10/10/22 Unknown History aerosol inhaler (ProAir HFA) atorvastatin 40 mg tablet 1 tab PO BEDTIME 08/12/20 10/10/22 Unknown History baclofen 10 mg tablet 2 tab PO TID PRN muscle spasm 08/12/20 08/07/22 02/14/22 04:00 History bupropion HCl 200 mg tablet,12 hr 1 tab PO BID 08/12/20 10/10/22 Unknown History sustained-release (Wellbutrin SR) buspirone 5 mg tablet 1 tab PO BID 08/12/20 10/10/22 Unknown History citalopram 20 mg tablet (Celexa) mg PO 08/12/20 Unknown History clonidine HCl 0.1 mg tablet PO 08/12/20 Unknown History conjugated estrogens 0.625 mg/gram vaginal 08/12/20 Unknown History vaginal cream (Premarin) duloxetine 30 mg capsule,delayed 1 cap PO DAILY 08/12/20 10/10/22 Unknown History release (Cymbalta) duloxetine 60 mg capsule,delayed 1 cap PO DAILY 08/12/20 10/10/22 Unknown History release (Cymbalta) gabapentin 600 mg tablet 1 tab PO QID 08/12/20 10/10/22 Unknown History hydroxyzine pamoate 25 mg capsule 1 cap PO BID PRN Dizziness 08/12/20 10/10/22 Unknown History ibuprofen 600 mg tablet 1 tab PO Q6H PRN pain 08/12/20 10/10/22 Unknown History lamotrigine 200 mg tablet 2 tab PO BEDTIME 08/12/20 10/10/22 Unknown History lisinopril 40 mg tablet 1 tab PO QAM 08/12/20 10/10/22 Unknown History metformin 500 mg tablet 1 tab PO QAM 08/12/20 08/07/22 Unknown History omega-3 fatty acids-fish oil 340 1 cap PO BID 08/12/20 10/10/22 Unknown History mg-1,000 mg capsule (Fish Oil) oxycodone 5 mg tablet 1 tab PO 5XD PRN severe pain 08/12/20 02/14/22 02/14/22 04:00 History sumatriptan succinate 25 mg tablet 1 tab PO migraine 08/12/20 Unknown History tolterodine 4 mg capsule,extended 1 cap PO QAM 08/12/20 10/10/22 Unknown History release 24 hr lisdexamfetamine 40 mg capsule 40 mg PO DAILY 08/02/21 10/10/22 Unknown History (Vyvanse) pantoprazole 40 mg tablet,delayed 1 tab PO QAM 08/07/22 10/10/22 Unknown History release Exam Exam Date and Time: October 11, 2022 1218 Assessment and Plan Assessment Anesthesia Assessment: Chart Reviewed Final Anesthetic Review History of Problems with Anesthesia: No
[2022-10-12 09:38] VITALS: BMI 40.7
[2022-10-12 09:42] VITALS: BP 141/82; PULSE 72; RESP 18; TEMP 37.2; O2SAT 97
[2022-10-12] MEDS: Lactated Ringers 1,000 ML 100 ML IVCONT (09:49)
--- NOTE | 2022-10-12 09:50 | PC.NURSE ---
IV inserted by mariposa bragg rn
[2022-10-12 09:51] LABS: Glucose, Whole Blood 145 mg/dL (60-115)
--- NOTE | 2022-10-12 10:04 | HO.ANESPROP2 ---
[facility] Active Problems Active Problems: All Active Problems (Updated 08/07/22 @ 14:04 by Karla Moore RN) Numbness and tingling in both hands (Acute) Carpal tunnel syndrome of left wrist (Acute) Carpal tunnel syndrome of right wrist (Acute) Status post carpal tunnel release (Acute) De Quervain's tenosynovitis, left (Acute) Past Medical History Medical History ADHD Anxiety Bipolar 1 disorder Depression Hx of adenomatous colonic polyps Hyperlipemia Hypertension NIDDY (non-insulin dependent diabetes mellitus in young) Sleep apnea Family History Family history of problems with anesthesia: No Surgical History Surgical History History of back surgery History of carpal tunnel surgery of right wrist History of hysterectomy History of surgery Hx of colonoscopy Hx of neck surgery Hx of tonsillectomy History of Problems with Anesthesia: No Social History Social History Alcohol intake: never Patient Tobacco Use Status: Current everyday Tobacco user Cigarettes Per Day: 20 Smoked in Last 30 Days: Yes Patient Interested in Nicotine Replacement: No Substance Use Frequency: Daily Are you DNR?: No Advance Directives: No Advance Directives Information Provided: Yes Nutrition Risks: No Nutritional Risk Current occupational status: disabled Current occupation: right handed/ Meds Allergies Allergy/AdvReac Type Severity Reaction Status Date / Time Penicillins [PENICILLINS] Allergy Intermediate SWELLING Verified 10/12/22 09:51 Active Medications: Current Medications Lactated Ringer's (Lr) 1,000 mls @ 100 mls/hr IVCONT .Q10H PARDEEP Last Admin: 10/12/22 09:49 Dose: 100 mls/hr Ondansetron HCl (Ondansetron Hcl 4 Mg/2 Ml Vial) 4 mg IVPUSH ONCE PRN PRN Reason: Nausea and Vomiting Home Medications Medication Instructions Recorded Confirmed Last Taken Type acetaminophen 650 mg 1 tab PO Q8H PRN fever 08/12/20 10/10/22 02/14/22 04:00 History tablet,extended release (Arthritis Pain Relief (acetaminophen) ER) albuterol sulfate 90 mcg/actuation 2 puff PO Q4-6H PRN wheezing 08/12/20 10/10/22 Unknown History aerosol inhaler (ProAir HFA) atorvastatin 40 mg tablet 1 tab PO BEDTIME 08/12/20 10/10/22 Unknown History baclofen 10 mg tablet 2 tab PO TID PRN muscle spasm 08/12/20 08/07/22 02/14/22 04:00 History bupropion HCl 200 mg tablet,12 hr 1 tab PO BID 08/12/20 10/10/22 Unknown History sustained-release (Wellbutrin SR) buspirone 5 mg tablet 1 tab PO BID 08/12/20 10/10/22 Unknown History citalopram 20 mg tablet (Celexa) mg PO 08/12/20 Unknown History clonidine HCl 0.1 mg tablet PO 08/12/20 Unknown History conjugated estrogens 0.625 mg/gram vaginal 08/12/20 Unknown History vaginal cream (Premarin) duloxetine 30 mg capsule,delayed 1 cap PO DAILY 08/12/20 10/10/22 Unknown History release (Cymbalta) duloxetine 60 mg capsule,delayed 1 cap PO DAILY 08/12/20 10/10/22 Unknown History release (Cymbalta) gabapentin 600 mg tablet 1 tab PO QID 08/12/20 10/10/22 Unknown History hydroxyzine pamoate 25 mg capsule 1 cap PO BID PRN Dizziness 08/12/20 10/10/22 Unknown History ibuprofen 600 mg tablet 1 tab PO Q6H PRN pain 08/12/20 10/10/22 Unknown History lamotrigine 200 mg tablet 2 tab PO BEDTIME 08/12/20 10/10/22 Unknown History lisinopril 40 mg tablet 1 tab PO QAM 08/12/20 10/10/22 Unknown History metformin 500 mg tablet 1 tab PO QAM 08/12/20 08/07/22 Unknown History omega-3 fatty acids-fish oil 340 1 cap PO BID 08/12/20 10/10/22 Unknown History mg-1,000 mg capsule (Fish Oil) oxycodone 5 mg tablet 1 tab PO 5XD PRN severe pain 08/12/20 02/14/22 02/14/22 04:00 History sumatriptan succinate 25 mg tablet 1 tab PO migraine 08/12/20 Unknown History tolterodine 4 mg capsule,extended 1 cap PO QAM 08/12/20 10/10/22 Unknown History release 24 hr lisdexamfetamine 40 mg capsule 40 mg PO DAILY 08/02/21 10/10/22 Unknown History (Cj) pantoprazole 40 mg tablet,delayed 1 tab PO QAM 08/07/22 10/10/22 Unknown History release Exam Exam Date and Time: October 12, 2022 1004 Height,Weight and Vital Signs: Height 5 ft 3 in Weight 104.326 kg Last Vital Signs Temp 98.9 F 10/12/22 09:42 Pulse 72 10/12/22 09:42 Resp 18 10/12/22 09:42 BP 141/82 H 10/12/22 09:42 Pulse Ox 97 10/12/22 09:42 O2 Del Method Room Air 10/12/22 09:42 Pertinent Lab Results Pertinent Lab Results: Laboratory Tests 10/12/22 09:36 POC Glucose 145 H Airway Mallampati Class: III TM Dist: >3cm Neck ROM: Full Denture: Upper Heart: rrr Lungs: clear Assessment and Plan Final Anesthetic Review Family History of Problems with Anesthesia: No History of Problems with Anesthesia: No NPO: Yes ASA Class: III Final Preanesthetic Review: No Changes in Pt Med Stat, Meds/Allgs Chart Reviewed, Consent Obtained/Reviewed and Anes Risks/Benef Reviewed Patient Risk: Intermediate Procedure Risk: Low Anesthetic Plan Anesthetic Plan: MAC: Disposition: Standard PACU
--- NOTE | 2022-10-12 10:32 | MHC.SHP ---
Pre-Procedural Eval Section A Date of Service: 10/12/22 Section B Chief Complaint: Colon cancer screening, history of colon polyps Relevant Family History (Specify if Yes): Yes Relevant Social History: Tobacco Use Present Medications: see Short Stay Collaborative assessment Medical History: Significant History (ADHD Anxiety Bipolar 1 disorder Depression Hyperlipemia Hypertension NIDDY (non-insulin dependent diabetes mellitus in young)) History of Previous Operations: Relevant previous surgery/procedure and date(s) (History of back surgery History of hysterectomy Hx of colonoscopy Hx of neck surgery Hx of tonsillectomy) Allergies: Allergies Allergy/AdvReac Type Severity Reaction Status Date / Time Penicillins [PENICILLINS] Allergy Intermediate SWELLING Verified 10/12/22 09:51 Review of Systems Sugical H&P ROS: Negative: Constitution, Cardiovascular, Respiratory and Gastrointestinal Exam Surgical H&P Exam: Normal: Heart, Normal: Lungs, Normal: Extremities and Normal: Abdomen Plan Diagnosis/Plan: Unchanged I have reviewed the history and physical and performed a pertinent physical examination on my patient. No changes have occurred unless specified. Time Spent With Patient Time: Total time managing care of this patient today ____ minutes.
--- NOTE | 2022-10-12 10:39 | P.OP_ITS ---
Operative Note Operative Note Date of Service: 10/12/22 Narrative: COLONOSCOPY TILL CECUM WITH SNARE POLYPECTOMY, SUBMUCOSAL INJECTION AND HEMOCLIP PLACEMENT Pre-op diagnosis: Colon cancer screening, history of colon polyps Post-op diagnosis:? COLON POLYPS, DIVERTICULOSIS, HEMORRHOIDS Endoscopist:? Randall Issa MD Anesthesia:?MAC Consent: Indications for the procedure and potential complications of bleeding, perforation, reaction to medications and missed diagnosis were discussed with the patient and informed consent was obtained. Instrument: Olympus PCF H 190 L variable stiffness pediatric colonoscope Monitoring: Vital signs and clinical assessment, intermittent blood pressure monitoring, continuous EKG monitoring, Pulse oximetry and Carbon Dioxide monitoring were done throughout the procedure. Please see anesthesia flowsheet. Colon withdrawl time was 25 minutes. Procedure: The patient was placed in the left lateral decubitis position and pre-procedure medications were administered. After a digital rectal examination of the ano-rectum, the video colonoscope was inserted into the rectum and advanced through the colon to the cecum. The colonoscope was slowly withdrawn in a retrograde panoramic fashion and the colon mucosa was carefully examined including a retroflexed view of the rectum. Findings and interventions are described below. Procedure Difficulty: Without difficulty Findings: Terminal Ileum: Not evaluated Cecum: Normal Ascending Colon: A 15 - 18 mm flat polyp in proximal ascending colon. Polyp was raised with 4 cc of [place] and removed with a hot snare. Polypectomy site was closed with 2 hemoclips and marked by Angelika ink. Transverse Colon: Normal Descending Colon: Normal Sigmoid Colon: Two 14 to 16 mm hyperplastic appearing polyps - removed with a hot snare. Multiple addition 8 to 10 mm hyperplastic polyps in the rectosigmoid colon. Moderate diverticulosis Rectum: Normal Ano-rectum: Moderate internal hemorrhoids Colon preparation: Good after copious irrigation Impression and Post Procedure Diagnosis: Colonoscopy Findings: Three medium sized polyps removed Moderate diverticulosis seen in the sigmoid colon Moderate hemorrhoids on retroflexed exam. Plan: I will send a letter with pathology results Patient has an appointment on 11/13/22 in the [facility] with Aliyah Parker FNP- [facility]. Repeat Colonoscopy interval based on path results - in 1-2 years if polyps are adenomatous (to check polypectomy site in AC) and 10 years if polyps are hyperplastic. Above findings were reviewed with the patient and colon polyps and diverticulosis handouts were given in the discharge area
[2022-10-12 11:29] VITALS: BP 142/72; PULSE 63; RESP 18; TEMP 37.3; O2SAT 97
[2022-10-12 11:44] VITALS: BP 141/78; PULSE 63; RESP 18; TEMP 37.3; O2SAT 99
== END 2022-10-12 12:04 | disposition home or self-care (01) ==
PROVIDERS: PCP Family Medicine; Visit Provider Internal Medicine Gastroenterology
PROC: 0DJD8ZZ Inspection of Lower Intestinal Tract, Via Natural or Artificial Opening Endoscopic (ICD-10-PCS; CPT 45378; principal; 2022-10-12 10:00)
DX: Z12.11 Encounter for screening for malignant neoplasm of colon (principal); Z86.010 Personal history of colon polyps; D12.2 Benign neoplasm of ascending colon; K63.5 Polyp of colon; K57.30 Diverticulosis of large intestine without perforation or abscess without bleeding; K64.8 Other hemorrhoids; K59.00 Constipation, unspecified; G47.33 Obstructive sleep apnea (adult) (pediatric); I10 Essential (primary) hypertension; E78.5 Hyperlipidemia, unspecified; E11.9 Type 2 diabetes mellitus without complications; Z79.84 Long term (current) use of oral hypoglycemic drugs; Z88.0 Allergy status to penicillin; F90.9 Attention-deficit hyperactivity disorder, unspecified type; F41.1 Generalized anxiety disorder; F31.9 Bipolar disorder, unspecified; Z79.1 Long term (current) use of non-steroidal anti-inflammatories (NSAID); Z79.899 Other long term (current) drug therapy; F17.210 Nicotine dependence, cigarettes, uncomplicated
CPT/HCPCS: 45385; 45381; 82947; 88305

== ENCOUNTER 2023-02-06 14:19 | Emergency (ER) | payer MEDICAID, SELFPAY ==
--- NOTE | ~2023-02-06 | XR_ITS ---
EXAMINATION: XR CHEST CLINICAL INFORMATION: Chest pain COMPARISON: None available. TECHNIQUE: Frontal view of the chest was obtained. FINDINGS: Cardiac silhouette is normal in size. The lungs are well aerated. There is no lobar consolidation. No pleural effusion or pneumothorax. Degenerative and postsurgical changes of the spine. XR/XR chest 1V IMPRESSION: No acute pulmonary pathology.
--- NOTE | 2023-02-06 14:23 | ECG_ITS ---
Test Reason : chest pain Blood Pressure : / mmHG Vent. Rate : 083 BPM Atrial Rate : 083 BPM P-R Int : 160 ms QRS Dur : 088 ms QT Int : 358 ms P-R-T Axes : 037 015 -03 degrees QTc Int : 420 ms Normal sinus rhythm Septal infarct , age undetermined Abnormal ECG When compared with ECG of 30-MAR-2018 08:44, No significant change was found Referred By: Generic ED Physician Electronically Signed By:SOMMER WIGGINS
[2023-02-06 14:37] VITALS: BP 130/80; BP 176/82; PULSE 80; PULSE 88; RESP 22; TEMP 37.2; O2SAT 96; BMI 40.2
--- NOTE | 2023-02-06 14:45 | ED.CHESTPAIN ---
HPI - Chest Pain General Chief Complaint: Chest Pain Stated Complaint: Chest Pressure Time Seen by Provider: 02/06/23 14:43 Source: patient and old records reviewed Mode of arrival: EMS Limitations: no limitations History of Present Illness HPI narrative: 52 yo female with hx of DM, HTN, HLD, bipolar here with c/o panic attack for almost 3 hours after going to [facility] office. she c/o chest pain, hyperventilation, carpopedal spasms. Patient notes she has panic attacks every day due to recent eviction issue. She was given aspirin and nitro by EMS but no change in symptom. She states she has been under stress and her therapist is helping but she is overwhelmed with the eviction process. MD complaint: chest pain Onset (ago): hour(s) (12pm today) Timing of current episode: now resolved Prior episodes: Yes Onset: during rest Pain location: substernal Pain radiation: none Severity: moderate Quality: heaviness Relieving factors: nothing Exacerbating factors: stress Context: other (recent dealing with eviction issues) Associated symptoms: diaphoresis, dyspnea, sense of impending doom and other (carpopedal spasms) Treatment prior to arrival: aspirin and nitroglycerin Related Data Home Medications Medication Instructions Recorded Confirmed acetaminophen 650 mg 1 tab PO Q8H PRN fever 08/12/20 10/10/22 tablet,extended release (Arthritis Pain Relief (acetaminophen) ER) albuterol sulfate 90 mcg/actuation 2 puff PO Q4-6H PRN wheezing 08/12/20 10/10/22 aerosol inhaler (ProAir HFA) atorvastatin 40 mg tablet 1 tab PO BEDTIME 08/12/20 10/10/22 baclofen 10 mg tablet 2 tab PO TID PRN muscle spasm 08/12/20 08/07/22 bupropion HCl 200 mg tablet,12 hr 1 tab PO BID 08/12/20 10/10/22 sustained-release (Wellbutrin SR) buspirone 5 mg tablet 1 tab PO BID 08/12/20 10/10/22 citalopram 20 mg tablet (Celexa) mg PO 08/12/20 clonidine HCl 0.1 mg tablet PO 08/12/20 conjugated estrogens 0.625 mg/gram vaginal 08/12/20 vaginal cream (Premarin) duloxetine 30 mg capsule,delayed 1 cap PO DAILY 08/12/20 10/10/22 release (Cymbalta) duloxetine 60 mg capsule,delayed 1 cap PO DAILY 08/12/20 10/10/22 release (Cymbalta) gabapentin 600 mg tablet 1 tab PO QID 08/12/20 10/10/22 hydroxyzine pamoate 25 mg capsule 1 cap PO BID PRN Dizziness 08/12/20 10/10/22 ibuprofen 600 mg tablet 1 tab PO Q6H PRN pain 08/12/20 10/10/22 lamotrigine 200 mg tablet 2 tab PO BEDTIME 08/12/20 10/10/22 lisinopril 40 mg tablet 1 tab PO QAM 08/12/20 10/10/22 metformin 500 mg tablet 1 tab PO QAM 08/12/20 08/07/22 omega-3 fatty acids-fish oil 340 1 cap PO BID 08/12/20 10/10/22 mg-1,000 mg capsule (Fish Oil) oxycodone 5 mg tablet 1 tab PO 5XD PRN severe pain 08/12/20 02/14/22 sumatriptan succinate 25 mg tablet 1 tab PO migraine 08/12/20 tolterodine 4 mg capsule,extended 1 cap PO QAM 08/12/20 10/10/22 release 24 hr lisdexamfetamine 40 mg capsule 40 mg PO DAILY 08/02/21 10/10/22 (Vyvanse) pantoprazole 40 mg tablet,delayed 1 tab PO QAM 08/07/22 10/10/22 release Previous Rx's Medication Instructions Recorded docusate sodium 100 mg capsule 200 mg PO BEDTIME #180 caps 03/21/22 polyethylene glycol 3350 17 17 g PO DAILY #510 grams 06/06/22 gram/dose oral powder (Miralax) sennosides 8.6 mg tablet (Natural 17.2 mg PO BEDTIME constipation 09/25/22 Senna Laxative) #90 tabs Allergies Allergy/AdvReac Type Severity Reaction Status Date / Time Penicillins [PENICILLINS] Allergy Intermediate SWELLING Verified 02/06/23 14:46 Review of Systems Review of Systems: Constitutional : No Weight loss, No Fever, No Chills ENT/Mouth : No sore throat, No Rhinorrhea Eyes: No Eye Pain, No Swelling Cardiovascular : pos Chest Pain, pos SOB, no Dyspnea on Exertion, No Orthopnea, No Edema, No Palpitations Respiratory : No Cough, No Sputum Gastrointestinal : no Nausea, No Vomiting, No Diarrhea, No abdominal Pain, No Hematochezia, No Melena Genitourinary : No Dysuria, No Urinary Frequency Musculoskeletal : No joint pain, No Myalgias, No Joint Swelling Skin : No Skin Lesions, No rash Neuro : No Weakness, No Numbness, No Dizziness, No Headache Psych : pos Anxiety/Panic, No Depression Heme/Lymph: No Bruising, No Lymphadenopathy Endocrine : No Polyuria, No Polydipsia All other systems reviewed and are negative [facility] Past Medical History Attestation statement: The following information was validated with the patient. Source: old records reviewed Medical History ADHD Anxiety Bipolar 1 disorder Depression Hx of adenomatous colonic polyps Hyperlipemia Hypertension NIDDY (non-insulin dependent diabetes mellitus in young) Sleep apnea Surgical History History of back surgery History of carpal tunnel surgery of right wrist History of hysterectomy History of surgery Hx of colonoscopy Hx of neck surgery Hx of tonsillectomy Social History Social History Alcohol intake: never Patient Tobacco Use Status: Current everyday Tobacco user Cigarettes Per Day: 20 Smoked in Last 30 Days: Yes Use of substances other than those prescribed or required for medical reasons: Yes Substance Use Type: Marijuana Last Used Substance: Hours (ago) Advance Directives: No Advance Directives Information Provided: No Current occupational status: disabled Current occupation: right handed/ Physical Exam Vital Signs: Vital Signs: Last Vital Signs Temp 99.0 F 02/06/23 14:37 Pulse 87 02/06/23 14:46 Resp 22 H 02/06/23 14:37 BP 176/82 H 02/06/23 14:37 Pulse Ox 96 02/06/23 14:37 O2 Del Method Room Air 02/06/23 14:37 BMI result Body Mass Index 40.2 Appearance: Alert. Oriented X3. No acute distress. anxious, tearful Eyes: Pupils equal, round and reactive to light. ENT: Pharynx normal. Neck: Normal inspection. Neck supple. CVS: Normal heart rate and rhythm. Pulses normal. Respiratory: No respiratory distress. Breath sounds normal. Abdomen: Soft and non-tender. Skin: Skin warm and dry. Normal skin color. Normal skin turgor. Extremities: No lower extremity edema. No calf ttp Neuro: Oriented X 3. No motor deficit. No sensory deficit. Medical Decision Making Medical Decision Making [facility] Narrative: 52 yo female with hx of DM, HTN, HLD, bipolar here with carpopedal spasms, anxiety, atypical chest pain in setting of recent eviction process and panic attack that started [facility]. Her symptoms do seem panic attack related but will obtain 3 hour troponin, labs, CXR and if negative stable for DC. Wells score is 0. Doubt VTE. Her pulses are intact doubt dissection. She denies infectious symptoms doubt pneumonia Differential Diagnosis Differential Diagnoses: The differential diagnosis associated with the presentation includes anxiety, stress, atypical chest pain, panic attack Admission/Observation Consideration of admission/observation: Escalation of care including admission/observation considered troponin negative symptoms resolved doubt VTE - no hypoxia, signs of DVT, tachycardia, not pleuritic in nature Lab Data [facility] Lab Attestation statement: I reviewed the patient's lab results. 02/06/23 15:00 02/06/23 15:00 Labs: Lab Results 02/06/23 02/06/23 02/06/23 Range/Units 15:00 15:00 15:00 WBC 8.5 (4.8-10.8) X10*3/uL RBC 4.29 (4.20-5.50) X10*6/uL Hgb 13.6 (12.0-16.0) g/dl Hct 39.9 (37.0-47.0) % MCV 93.0 (80.0-98.0) fL MCH 31.7 (27.0-33.0) pg MCHC 34.1 (31.0-35.0) g/dl RDW 13.1 (11.0-16.0) % Plt Count 276 (160-400) X10*3/uL MPV 9.3 L (9.4-12.3) fL Immature Gran % (Auto) 0.9 H (0.0-0.4) % Neut % (Auto) 48.5 (45-73) % Lymph % (Auto) 38.8 (20-40) % [place] % (Auto) 8.8 (2-11) % Eos % (Auto) 2.2 (0-4) % Baso % (Auto) 0.8 (0-2) % Lymph # (Auto) 3.3 (1.2-4.9) X10*3/uL [place] # (Auto) 0.8 (0.1-1.2) X10*3/uL Eos # (Auto) 0.2 (0.0-0.4) X10*3/uL Baso # (Auto) 0.1 (0.0-0.2) X10*3/uL Abs Immat Gran (auto) 0.08 H (0.00-0.03) X10*3/uL Absolute Neuts (auto) 4.1 (2.0-8.3) x10*3/uL Absolute Nucleated RBC 0.000 (0.0-0.012) X10*3/uL Nucleated RBC % (auto) 0.0 (0.0-0.2) /100WBC Sodium 141 (135-145) mmol/L Potassium 4.2 (3.3-5.1) mmol/L Chloride 107 (96-108) mmol/L Carbon Dioxide 26 (22-29) mmol/L Anion Gap 12 (12-20) BUN 11 (9-16) mg/dL Creatinine 0.77 (0.5-1.4) mg/dL Estim Creat Clear Calc 95.5 Estimated GFR > 60 Random Glucose 130 H (60-115) mg/dL Calcium 10.1 (8.4-10.2) mg/dL Magnesium 2.0 (1.6-2.6) mg/dL Total Bilirubin 0.2 (0.0-1.0) mg/dL AST 28 (5-31) U/L ALT 50 H (0-31) U/L Alkaline Phosphatase 74 (39-117) U/L Troponin I High Sens < 2.7 (<3.5-17.0) ng/L B-Natriuretic Peptide (<100) pg/mL Total Protein 6.8 (6.5-8.0) g/dL Albumin 4.3 (3.5-5.0) g/dL 02/06/23 Range/Units 15:00 WBC (4.8-10.8) X10*3/uL RBC (4.20-5.50) X10*6/uL Hgb (12.0-16.0) g/dl Hct (37.0-47.0) % MCV (80.0-98.0) fL MCH (27.0-33.0) pg MCHC (31.0-35.0) g/dl RDW (11.0-16.0) % Plt Count (160-400) X10*3/uL MPV (9.4-12.3) fL Immature Gran % (Auto) (0.0-0.4) % Neut % (Auto) (45-73) % Lymph % (Auto) (20-40) % [place] % (Auto) (2-11) % Eos % (Auto) (0-4) % Baso % (Auto) (0-2) % Lymph # (Auto) (1.2-4.9) X10*3/uL [place] # (Auto) (0.1-1.2) X10*3/uL Eos # (Auto) (0.0-0.4) X10*3/uL Baso # (Auto) (0.0-0.2) X10*3/uL Abs Immat Gran (auto) (0.00-0.03) X10*3/uL Absolute Neuts (auto) (2.0-8.3) x10*3/uL Absolute Nucleated RBC (0.0-0.012) X10*3/uL Nucleated RBC % (auto) (0.0-0.2) /100WBC Sodium (135-145) mmol/L Potassium (3.3-5.1) mmol/L Chloride (96-108) mmol/L Carbon Dioxide (22-29) mmol/L Anion Gap (12-20) BUN (9-16) mg/dL Creatinine (0.5-1.4) mg/dL Estim Creat Clear Calc Estimated GFR Random Glucose (60-115) mg/dL Calcium (8.4-10.2) mg/dL Magnesium (1.6-2.6) mg/dL Total Bilirubin (0.0-1.0) mg/dL AST (5-31) U/L ALT (0-31) U/L Alkaline Phosphatase (39-117) U/L Troponin I High Sens (<3.5-17.0) ng/L B-Natriuretic Peptide < 10 (<100) pg/mL Total Protein (6.5-8.0) g/dL Albumin (3.5-5.0) g/dL Independent Interpretation I performed an independent interpretation of an: EKG and Plain X-Ray Interpretation: Rate: 83 Rhythm: NSR [place]: normal Normal P waves. Normal ALTHEA. Normal QRS complex. ST T wave : no MARTINE, nonspecific ST T wave changes III and V1 qTC: normal prior studies: no acute ischemia The study has been interpreted contemporaneously by me. . Radiology Impression Discussion of test interpretation with radiology: I have reviewed the radiologist's reading. External Record Review External record reviewed: Inpatient record Discharge Plan Discharge Clinical Impression: Atypical chest pain, Panic attack Patient Disposition: Home, Self-Care Instructions: Chest Pain (ED), Panic Attack (ED) Additional Instructions: please continue to follow up with your doctor and therapist. return for worsening pain, dizziness, fainting, increased shortness of breath or any other concerns. Prescriptions: No Action polyethylene glycol 3350 [Miralax] 17 gram/dose powder 17 g PO DAILY Qty: 510 2RF sennosides [Natural Senna Laxative] 8.6 mg tablet 17.2 mg PO BEDTIME Qty: 90 3RF atorvastatin 40 mg tablet 1 tab PO BEDTIME buspirone 5 mg tablet 1 tab PO BID metformin 500 mg tablet 1 tab PO QAM clonidine HCl 0.1 mg tablet PO gabapentin 600 mg tablet 1 tab PO QID lamotrigine 200 mg tablet 2 tab PO BEDTIME tolterodine 4 mg capsule,extended release 24hr 1 cap PO QAM sumatriptan succinate 25 mg tablet 1 tab PO acetaminophen [Arthritis Pain Relief (acetam)] 650 mg tablet extended release 1 tab PO Q8H PRN (Reason: fever) citalopram [Celexa] 20 mg tablet PO baclofen 10 mg tablet 2 tab PO TID PRN (Reason: muscle spasm) Premarin 0.625 mg/gram cream vaginal ibuprofen 600 mg tablet 1 tab PO Q6H PRN (Reason: pain) albuterol sulfate [ProAir HFA] 90 mcg/actuation HFA aerosol inhaler 2 puff PO Q4-6H PRN (Reason: wheezing) lisinopril 40 mg tablet 1 tab PO QAM oxycodone 5 mg tablet 1 tab PO 5XD PRN (Reason: severe pain) hydroxyzine pamoate 25 mg capsule 1 cap PO BID PRN (Reason: Dizziness) bupropion HCl [Wellbutrin SR] 200 mg tablet sustained-release 12 hr 1 tab PO BID duloxetine [Cymbalta] 30 mg capsule,delayed release(DR/EC) 1 cap PO DAILY duloxetine [Cymbalta] 60 mg capsule,delayed release(DR/EC) 1 cap PO DAILY Fish Oil 340-1,000 mg capsule 1 cap PO BID pantoprazole 40 mg tablet,delayed release (DR/EC) 1 tab PO QAM Vyvanse 40 mg capsule 40 mg PO DAILY docusate sodium 100 mg capsule 200 mg PO BEDTIME Qty: 180 3RF
[2023-02-06 14:46] VITALS: PULSE 87
[2023-02-06 15:03] LABS: MANUAL DIFF FLAG NO
[2023-02-06 15:08] LABS: Basophils Absolute Auto 0.1 X10*3/uL (0.0-0.2); Basophils Percent Auto 0.8 % (0-2); Eosinophils Absolute Auto 0.2 X10*3/uL (0.0-0.4); Eosinophils Percent Auto 2.2 % (0-4); Hematocrit 39.9 % (37.0-47.0); Hemoglobin 13.6 g/dl (12.0-16.0); Imm Gran Abs Auto 0.08 X10*3/uL (0.00-0.03); Imm Gran Pct Auto 0.9 % (0.0-0.4); Lymphocytes Absolute Auto 3.3 X10*3/uL (1.2-4.9); Lymphocytes Percent Auto 38.8 % (20-40); Mean Corpuscular HGB Conc 34.1 g/dl (31.0-35.0); Mean Corpuscular Hemoglobin 31.7 pg (27.0-33.0); Mean Platelet Volume 9.3 fL (9.4-12.3); Monocytes Absolute Auto 0.8 X10*3/uL (0.1-1.2); Monocytes Percent Auto 8.8 % (2-11); Neutrophils Absolute Auto 4.1 x10*3/uL (2.0-8.3); Neutrophils Percent Auto 48.5 % (45-73); Platelet Count 276 X10*3/uL (160-400); Red Blood Count 4.29 X10*6/uL (4.20-5.50); Red Cell Distribution Width 13.1 % (11.0-16.0); White Blood Count 8.5 X10*3/uL (4.8-10.8)
[2023-02-06 15:34] LABS: Alanine Aminotransferase 50 U/L (0-31); Albumin Level 4.3 g/dL (3.5-5.0); Alkaline Phosphatase 74 U/L (39-117); Anion Gap 12 (12-20); Aspartate Amino Transferase 28 U/L (5-31); Bilirubin Total 0.2 mg/dL (0.0-1.0); Blood Urea Nitrogen 11 mg/dL (9-16); Calcium 10.1 mg/dL (8.4-10.2); Carbon Dioxide 26 mmol/L (22-29); Chloride 107 mmol/L (96-108); Creatinine Clr Calc Pharmacy 95.5; Estimated Glomerular Filt Rate > 60; Glucose Random 130 mg/dL (60-115); Potassium 4.2 mmol/L (3.3-5.1); Sodium 141 mmol/L (135-145); Total Protein 6.8 g/dL (6.5-8.0)
[2023-02-06 15:40] LABS: B Type Natriuretic Peptide < 10 pg/mL (<100)
[2023-02-06 15:43] LABS: Troponin-I High Sensitivity < 2.7 ng/L (<3.5-17.0)
[2023-02-06 16:53] VITALS: BP 149/67; PULSE 70; RESP 22; TEMP 37; O2SAT 97
[2023-02-06 17:06] LABS: Appearance Urine Clear; Color Urine Yellow; Glucose Urine UA Negative (Negative); Leukocyte Esterase Urine Negative (Negative); Nitrite Urine Negative (Negative); PH 6.5 (5.0-9.0); Specific Gravity - Urine 1.015 (1.005-1.025); Urine Blood Negative (Negative); Urine Ketones Negative (Negative); Urine Protein Negative (Neg-Trace)
[2023-02-06 17:09] VITALS: BP 144/82; PULSE 70; RESP 18; O2SAT 98
== END 2023-02-06 17:12 | disposition home or self-care (01) ==
PROVIDERS: Physician Assistant; Emergency Provider Emergency Medicine
DX: R07.89 Other chest pain (principal); F41.0 Panic disorder [episodic paroxysmal anxiety]; F43.0 Acute stress reaction; R06.02 Shortness of breath; Z79.899 Other long term (current) drug therapy
CPT/HCPCS: 36415; 71045; 80053; 81003; 83735; 83880; 84484; 85025; 93005; 99283; 99285

== ENCOUNTER 2023-06-12 10:11 | Outpatient (REF) | payer MEDICAID, SELFPAY ==
--- NOTE | ~2023-06-12 | XR_ITS ---
EXAMINATION: XR SHOULDER, RIGHT CLINICAL INFORMATION: Pain of one month's duration. COMPARISON: Radiographs dated 06/21/2016. TECHNIQUE: AP external rotation, Grashey, scapular Y, and axillary views of the right shoulder. FINDINGS: Bony alignment and mineralization are normal. The glenohumeral joint is intact. The acromioclavicular and coracoclavicular intervals are normal. No fracture or dislocation is seen. There are soft tissue calcifications at the rotator cuff insertion. No foreign body is seen. There is no right pneumothorax. XR/XR shoulder RT min 2V IMPRESSION: 1. No fracture or dislocation is seen. 2. Findings are consistent with calcific tendinitis of the right rotator cuff insertion.
--- NOTE | ~2023-06-12 | XR_ITS ---
EXAMINATION: XR CERVICAL SPINE CLINICAL INFORMATION: Right cervical pain of one month's duration. COMPARISON: Radiographs dated 06/20/2016. TECHNIQUE: Frontal, odontoid, lateral and swimmer's views are obtained. FINDINGS: Vertebral body heights and alignment are normal. At C2-C3, there is moderate anterior disc space narrowing. There is well-maintained alignment status-post C5-C7 anterior fusion, with intact anterior fixator fixator plate and fixator screws. No hardware failure or loosening is seen. There is no acute fracture or spondylolisthesis. There is marked anterior spondylosis extending from C2-C3 through C4-C5. The posterior elements are intact. There is no prevertebral soft tissue swelling. The dens and C7-T1 interface are normal. XR/XR cervical spine 3V IMPRESSION: 1. There is well-maintained alignment status-post C5-C7 anterior fusion. No hardware failure or loosening is seen. 2. There is moderate degenerative disc disease at C2-C3. 3. There is marked anterior spondylosis extending from C2-C3 through C4-C5.
== END 2023-06-12 10:12 | disposition home or self-care (01) ==
LOC: HO.HHCX 10:11
PROVIDERS: Visit Provider Family Medicine
DX: M25.511 Pain in right shoulder (principal); M54.2 Cervicalgia
CPT/HCPCS: 72040; 73030

== ENCOUNTER 2023-06-12 10:43 | Outpatient (REF) | payer MEDICAID, SELFPAY ==
[2023-06-12 11:28] LABS: MANUAL DIFF FLAG NO
[2023-06-12 11:35] LABS: Basophils Absolute Auto 0.1 X10*3/uL (0.0-0.2); Eosinophils Absolute Auto 0.2 X10*3/uL (0.0-0.4); Eosinophils Percent Auto 2.1 % (0-4); Hematocrit 43.3 % (37.0-47.0); Hemoglobin 14.6 g/dl (12.0-16.0); Imm Gran Abs Auto 0.12 X10*3/uL (0.00-0.03); Imm Gran Pct Auto 1.2 % (0.0-0.4); Lymphocytes Percent Auto 40.2 % (20-40); Mean Corpuscular HGB Conc 33.7 g/dl (31.0-35.0); Mean Corpuscular Hemoglobin 31.7 pg (27.0-33.0); Mean Corpuscular Volume 94.1 fL (80.0-98.0); Mean Platelet Volume 9.5 fL (9.4-12.3); Monocytes Absolute Auto 0.8 X10*3/uL (0.1-1.2); Monocytes Percent Auto 8.2 % (2-11); Neutrophils Absolute Auto 4.7 x10*3/uL (2.0-8.3); Neutrophils Percent Auto 47.3 % (45-73); Platelet Count 344 X10*3/uL (160-400); Red Cell Distribution Width 12.8 % (11.0-16.0)
[2023-06-12 12:07] LABS: Estimated Average Glucose 148 mg/dL; Hemoglobin A1c % 6.8 % (<6.0)
[2023-06-12 12:44] LABS: Creatinine Urine 21.42 mg/dL; Microalbum/Creatinine Ratio Ur 102.7 ug/mg cr (<30)
[2023-06-12 12:49] LABS: Alanine Aminotransferase 49 U/L (0-31); Albumin Level 4.8 g/dL (3.5-5.0); Alkaline Phosphatase 83 U/L (39-117); Anion Gap 12 (12-20); Aspartate Amino Transferase 27 U/L (5-31); Bilirubin Direct 0.1 mg/dL (0.0-0.5); Bilirubin Total 0.3 mg/dL (0.0-1.0); Blood Urea Nitrogen 12 mg/dL (9-16); Calcium 10.2 mg/dL (8.4-10.2); Carbon Dioxide 30 mmol/L (22-29); Chloride 104 mmol/L (96-108); Cholesterol 231 mg/dL (<200); Estimated Glomerular Filt Rate > 60; Glucose Random 114 mg/dL (60-115); HDL Cholesterol 62 mg/dL (>40); LDL Cholesterol Calculated 107 mg/dL (<100); Potassium 4.1 mmol/L (3.3-5.1); Sodium 142 mmol/L (135-145); Total Protein 7.7 g/dL (6.5-8.0); Triglycerides 314 mg/dL (<150)
[2023-06-12 12:53] LABS: Thyroid Stimulating Hormone 1.16 uIU/mL (0.32-4.0)
[2023-06-14 12:54] LABS: Alpha Fetoprotein 3.4 ng/mL
== END 2023-06-12 10:44 | disposition home or self-care (01) ==
LOC: HO.HHCL 10:43
PROVIDERS: Visit Provider Family Medicine
DX: E11.9 Type 2 diabetes mellitus without complications (principal)
CPT/HCPCS: 36415; 72040; 73030; 80048; 80061; 80076; 82043; 82105; 82306; 82570; 83036; 84439; 84443; 85025

== ENCOUNTER 2023-08-06 15:43 | Outpatient (REF) | payer MEDICAID, SELFPAY ==
--- NOTE | ~2023-08-06 | MM_ITS ---
EXAMINATION: MM SCREENING DIGITAL BREAST TOMOSYNTHESIS, BILATERAL CLINICAL INFORMATION: Screening. Asymptomatic. COMPARISON: Mammography: This study is compared with prior exams dating back to 2015. TECHNIQUE: Digital breast tomosynthesis is performed in both the craniocaudal and mediolateral oblique views along with computer-aided detection (CAD). Synthesized 2D images are generated from the tomosynthesis. FINDINGS: There are scattered areas of fibroglandular density (ACR BI-RADS breast composition Category b). There are no significant masses, abnormal calcifications, or other abnormalities. MM/MM tomosynthesis screening BI IMPRESSION: No mammographic evidence of malignancy. ASSESSMENT: BI-RADS BI-RADS 1 - Negative RECOMMENDATION: Routine annual mammography screening. 1 year F/U This examination should not preclude the clinical evaluation of a suspicious palpable abnormality. This patient's information was entered into a reminder system with a target due date for their next mammogram.
== END 2023-08-06 15:44 | disposition home or self-care (01) ==
LOC: HO.MAMMO 15:43
PROVIDERS: Visit Provider Family Medicine
DX: Z12.31 Encounter for screening mammogram for malignant neoplasm of breast (principal)
CPT/HCPCS: 77063; 77067

== ENCOUNTER → 2023-08-06 16:00 | Outpatient (BNV) | payer MEDICAID, SELFPAY | PROVIDERS: Visit Provider Radiology Diagnostic Radiology | DX: Z12.31 Encounter for screening mammogram for malignant neoplasm of breast (principal) | CPT/HCPCS: 77063; 77067 ==

== ENCOUNTER 2023-08-23 17:57 | Outpatient (REF) | payer MEDICAID, SELFPAY ==
[2023-08-24 04:10] LABS: CT PCR NOT DETECTED (Not Detect.); NG PCR NOT DETECTED (Not Detect.)
[2023-08-28 12:38] LABS: HPV mRNA E6/E7 rflx Not Detected (Not Detected)
== END 2023-08-23 17:58 | disposition home or self-care (01) ==
LOC: HO.HHCLNP 17:57
PROVIDERS: Visit Provider Family Medicine
DX: Z12.4 Encounter for screening for malignant neoplasm of cervix (principal); Z11.51 Encounter for screening for human papillomavirus (HPV)
CPT/HCPCS: 0353U; 87624; 88142

== ENCOUNTER 2023-09-12 17:26 | Outpatient (REF) | payer MEDICAID, SELFPAY ==
--- NOTE | ~2023-09-12 | MR_ITS ---
EXAMINATION: MR BRAIN WITHOUT CONTRAST CLINICAL INFORMATION: Persistent daily headaches COMPARISON: MRA head on 08/20/2020 TECHNIQUE: MRI of the brain was obtained using routine sequences without contrast. FINDINGS: No acute intracranial hemorrhage or infarct. Scattered and confluent periventricular and deep white matter T2/FLAIR hyperintensities, nonspecific however commonly seen with small vessel ischemic disease. No midline shift or hydrocephalus. No acute extra-axial fluid collections. The osseous structures are unremarkable. Partially empty sella. 9 mm unilocular pineal cyst. The remaining midline structures are unremarkable. No orbital pathology. Mild mucosal thickening of the paranasal sinuses. The mastoid air cells are clear. MR/MR head/brain wo con IMPRESSION: -No acute intracranial abnormality. -Incidentally findings of partially empty sella and 9 mm unilocular pineal cyst.
== END 2023-09-12 17:27 | disposition home or self-care (01) ==
LOC: HO.MRI 17:26
PROVIDERS: Visit Provider Family Medicine
DX: R51.9 Headache, unspecified (principal)
CPT/HCPCS: 70551

== ENCOUNTER 2024-12-04 02:38 | Emergency (ER) | payer MEDICAID, SELFPAY ==
--- NOTE | ~2024-12-04 | CT_ITS ---
CLINICAL HISTORY: fall headstrike CT head without contrast Comparison: None provided Findings: No intra-axial mass, midline shift, hydrocephalus, or acute hemorrhage. No significant atrophy-like change or white matter disease. There is no sinus or mastoid fluid. The orbits are unremarkable. No skull fracture. IMPRESSION: 1. No acute intracranial findings. This document has been electronically signed by: Renan Ware MD on 12/04/2024 05:22:17
--- NOTE | ~2024-12-04 | CT_ITS ---
CLINICAL HISTORY: fall CT cervical spine without contrast Comparison: None Findings: There is postsurgical and degenerative straightening of the normal cervical lordosis. Fusion hardware from C5-C7 is intact. No fracture or acute malalignment. Multilevel degenerative changes with disc space narrowing throughout the cervical spine. The facet joints are normally imbricated. No prevertebral soft tissue edema. Lung apicies demonstrate no acute process. Impression: Degenerative and postsurgical changes without evidence of acute fracture or acute malalignment. This document has been electronically signed by: Renan Ware MD on 12/04/2024 05:16:01
[2024-12-04 02:40] VITALS: BP 142/82; PULSE 93; RESP 17; TEMP 37.1; O2SAT 99; BMI 40.4
--- NOTE | 2024-12-04 02:48 | ED.HEATRA ---
HPI - Head Injury General Chief complaint: Fall Stated complaint: Fall head Strike Time Seen by Provider: 12/04/24 02:47 Source: patient and old records reviewed Mode of arrival: ambulatory Limitations: no limitations History of Present Illness ED Provider: SHAYNA PASCUAL Narrative: 54 yo female with PMH of arthritis, depression, HLD, DM, HTN, not on blood thinners here with c/o getting up and she tripped and hit her head. She had no LOC. She has no other injuries. She has been cutting down on her night time meds that are sedating. She has been under stress and tired due to family stress. No recent CP/SOB, dizziness, GIB or infections reported. She has been dealing with lower molars infected s/p pulling tooth was going to dentist tomorrow MD Complaint: head injury Onset (ago): minute(s) ([employer]ATING [employer]) Mechanism of Injury: fall Place: home Loss of Consciousness: no Location of injury: frontal Severity: moderate Quality: dull and aching Radiation: none Other Injuries: laceration Associated symptoms: denies other symptoms Related Data Home Medications ?Medication ?Instructions ?Recorded ?Confirmed acetaminophen 650 mg 1 tab PO Q8H PRN fever 08/12/20 10/10/22 tablet,extended release (Arthritis Pain Relief (acetaminophen) ER) albuterol sulfate 90 mcg/actuation 2 puff PO Q4-6H PRN wheezing 08/12/20 10/10/22 aerosol inhaler (ProAir HFA) atorvastatin 40 mg tablet 1 tab PO BEDTIME 08/12/20 10/10/22 baclofen 10 mg tablet 2 tab PO TID PRN muscle spasm 08/12/20 08/07/22 bupropion HCl 200 mg tablet,12 hr 1 tab PO BID 08/12/20 10/10/22 sustained-release (Wellbutrin SR) buspirone 5 mg tablet 1 tab PO BID 08/12/20 10/10/22 citalopram 20 mg tablet (Celexa) mg PO 08/12/20 clonidine HCl 0.1 mg tablet PO 08/12/20 conjugated estrogens 0.625 mg/gram vaginal 08/12/20 vaginal cream (Premarin) duloxetine 30 mg capsule,delayed 1 cap PO DAILY 08/12/20 10/10/22 release (Cymbalta) duloxetine 60 mg capsule,delayed 1 cap PO DAILY 08/12/20 10/10/22 release (Cymbalta) gabapentin 600 mg tablet 1 tab PO QID 08/12/20 10/10/22 hydroxyzine pamoate 25 mg capsule 1 cap PO BID PRN Dizziness 08/12/20 10/10/22 ibuprofen 600 mg tablet 1 tab PO Q6H PRN pain 08/12/20 10/10/22 lamotrigine 200 mg tablet 2 tab PO BEDTIME 08/12/20 10/10/22 lisinopril 40 mg tablet 1 tab PO QAM 08/12/20 10/10/22 metformin 500 mg tablet 1 tab PO QAM 08/12/20 08/07/22 omega-3 fatty acids-fish oil 340 1 cap PO BID 08/12/20 10/10/22 mg-1,000 mg capsule (Fish Oil) oxycodone 5 mg tablet 1 tab PO 5XD PRN severe pain 08/12/20 02/14/22 sumatriptan succinate 25 mg tablet 1 tab PO migraine 08/12/20 tolterodine 4 mg capsule,extended 1 cap PO QAM 08/12/20 10/10/22 release 24 hr lisdexamfetamine 40 mg capsule 40 mg PO DAILY 08/02/21 10/10/22 (Vyvanse) pantoprazole 40 mg tablet,delayed 1 tab PO QAM 08/07/22 10/10/22 release Previous Rx's ?Medication ?Instructions ?Recorded polyethylene glycol 3350 17 17 g PO DAILY #510 grams 06/06/22 gram/dose oral powder (Miralax) sennosides 8.6 mg tablet (Natural 17.2 mg (2 x 8.6 mg) PO BEDTIME 03/29/23 Senna Laxative) constipation #90 tabs docusate sodium 100 mg capsule 200 mg (2 x 100 mg) PO BEDTIME 03/26/24 #180 caps Allergies Allergy/AdvReac Type Severity Reaction Status Date / Time Penicillins (PENICILLINS) Allergy Intermediate SWELLING Verified 12/04/24 02:47 Review of Systems Review of Systems: Constitutional : No Fever, No Chills, No Fatigue ENT/Mouth : No sore throat, No Rhinorrhea Eyes: No Eye Pain, No Swelling, No Redness Cardiovascular : No Chest Pain, No SOB, No Dyspnea on Exertion Respiratory : No Cough, No Sputum Gastrointestinal : No Nausea, No Vomiting, No Diarrhea, No abdominal Pain Genitourinary : No Dysuria, No Urinary Frequency, No Hematuria, Musculoskeletal : No joint pain, No Myalgias, No Joint Swelling Skin : No Skin Lesions, No rash, pos laceration Neuro : No Weakness, No Numbness, No Dizziness, positive Headache All other systems reviewed and are negative PMFSH Past Medical History Attestation statement: The following information was validated with the patient. Source: old records reviewed Medical History Hx of adenomatous colonic polyps Sleep apnea ADHD Anxiety Depression Bipolar 1 disorder NIDDY (non-insulin dependent diabetes mellitus in young) Hypertension Hyperlipemia Surgical History History of carpal tunnel surgery of right wrist History of surgery Hx of colonoscopy Hx of tonsillectomy History of back surgery Hx of neck surgery History of hysterectomy Social History Social History Alcohol intake: never Patient Tobacco Use Status: Current everyday Tobacco user Cigarettes Per Day: 20 Substance Use Type: Marijuana Advance Directives: No Advance Directives Information Provided: Yes Do you have a plan to hurt others: No Plan Current occupational status: disabled Current occupation: right handed/ Physical Exam Vital Signs: Vital Signs: Last Vital Signs Temp 97.9 F 12/04/24 06:05 Pulse 66 12/04/24 06:05 Resp 17 12/04/24 02:40 BP 103/52 L 12/04/24 06:05 Pulse Ox 97 12/04/24 06:05 O2 Del Method Room Air 12/04/24 06:05 BMI result Body Mass Index 40.4 Appearance: Alert. Oriented X3. No acute distress. Eyes: Pupils equal, round and reactive to light. ENT: Pharynx normal. no leone or raccoon sign, L frontal forehead linear 8cm superficial laceration from forehead into scalp Neck: Normal inspection. Neck supple. CVS: Normal heart rate and rhythm. Pulses normal. Respiratory: No respiratory distress. Breath sounds normal. Abdomen: Soft and nontender. Skin: Skin warm and dry. Normal skin color. Normal skin turgor. Extremities: No lower extremity edema. No calf ttp Neuro: Oriented X 3. No motor deficit. No sensory deficit. CN2-12 intact Medications Administered Discontinued Medications Generic Name Dose Route Start Last Admin Trade Name Mook PRN Reason Stop Dose Admin Acetaminophen 975 mg 12/04/24 03:49 12/04/24 04:02 Acetaminophen 325 Mg Tablet PO 12/04/24 03:50 Not Given ONCE ONE Lidocaine HCl 5 ml 12/04/24 02:47 12/04/24 03:58 Lidocaine Hcl 1 % Mpf 5 Ml Vial SUBCUT 12/04/24 02:48 5 ml ONCE ONE Administration Ondansetron HCl 4 mg 12/04/24 03:49 12/04/24 03:58 Ondansetron Odt 4 Mg Tab.Rapdis TRANSLINGU 12/04/24 03:50 4 mg ONCE ONE Administration Oxycodone HCl 10 mg 12/04/24 04:01 12/04/24 04:06 Oxycodone Hcl Immed Release 5 Mg Tablet PO 12/04/24 04:02 10 mg ONCE ONE Administration Medical Decision Making Medical Decision Making [facility] Narrative: 54 yo female with PMH of arthritis, depression, HLD, DM, HTN, not on blood thinners here with c/o waking up and fall she is GCS [address] head/cspine and repair of laceration. No other injuries reported. No preceding symptoms. She will get EKG, labs, imaging. NO CP to suggest ACS and no other medical complaints to cause fall. Differential Diagnosis Differential Diagnoses: The differential diagnosis associated with the presentation includes head injury, laceration Admission/Observation Consideration of admission/observation: Escalation of care including admission/observation considered H/H stable, CT scans negative GCS 15 Lab Data [facility] Lab Attestation statement: I reviewed the patient's lab results. 12/04/24 06:02 12/04/24 04:05 Labs: Lab Results 12/04/24 12/04/24 Range/Units 04:05 06:02 WBC 8.4 9.3 (4.8-10.8) X10*3/uL RBC 3.86 L 3.96 L (4.20-5.50) X10*6/uL Hgb 11.7 L 11.9 L (12.0-16.0) g/dl Hct 34.0 L D 34.8 L (37.0-47.0) % MCV 88.1 87.9 (80.0-98.0) fL MCH 30.3 30.1 (27.0-33.0) pg MCHC 34.4 34.2 (31.0-35.0) g/dl RDW 14.0 13.9 (11.0-16.0) % Plt Count 269 283 (160-400) X10*3/uL MPV 8.9 L 8.9 L (9.4-12.3) fL Immature Gran % (Auto) 0.7 H (0.0-0.4) % Neut % (Auto) 54.7 (45-73) % Lymph % (Auto) 33.8 (20-40) % [place] % (Auto) 8.0 (2-11) % Eos % (Auto) 2.1 (0-4) % Baso % (Auto) 0.7 (0-2) % Lymph # (Auto) 2.8 (1.2-4.9) X10*3/uL [place] # (Auto) 0.7 (0.1-1.2) X10*3/uL Eos # (Auto) 0.2 (0.0-0.4) X10*3/uL Baso # (Auto) 0.1 (0.0-0.2) X10*3/uL Abs Immat Gran (auto) 0.06 H (0.00-0.03) X10*3/uL Absolute Neuts (auto) 4.6 (2.0-8.3) x10*3/uL Absolute Nucleated RBC 0.000 0.000 (0.0-0.012) X10*3/uL Nucleated RBC % (auto) 0.0 0.0 (0.0-0.2) /100WBC Sodium 140 (135-145) mmol/L Potassium 3.6 (3.3-5.1) mmol/L Chloride 107 (96-108) mmol/L Carbon Dioxide 24 (22-29) mmol/L Anion Gap 13 (12-20) BUN 14 (9-16) mg/dL Creatinine 0.87 (0.5-1.4) mg/dL Estim Creat Clear Calc 82.8 Estimated GFR > 60 Random Glucose 159 H (60-115) mg/dL Calcium 9.1 D (8.4-10.2) mg/dL Independent Interpretation I performed an independent interpretation of an: EKG and CT Scan (no trauma) Interpretation: Rate: 80 Rhythm: NSR [place]: left Normal P waves. Normal ALTHEA. Normal QRS complex. ST T wave : inverted t wave V2, no MARTINE qTC: 445 prior studies: no acute ischemia The study has been interpreted contemporaneously by me. . Radiology Impression Discussion of test interpretation with radiology: I have reviewed the radiologist's reading. Independent Historian Clinical information obtained from an independent historian. History obtained from or confirmed by: Spouse External Record Review External record reviewed: Outpatient record Procedures Laceration Laceration 1: Site: face Side (If applicable): left Size (cm): 8 Description: linear Depth: simple, single layer Local Anesthetic: lidocaine 1% Amount of anesthesia used (mL): 5 Pre-repair: wound explored, irrigated extensively and deep structures intact Skin layer closed with: nylon Size (cm): 5-0 Number of sutures: 6 Technique: simple, interrupted and other (as well as 5 maricarmen on scalp) Discharge Plan Discharge Clinical Impression: Head injury, Complex laceration of forehead Patient Disposition: Home, Self-Care Instructions: Laceration (ED), Head Injury (ED) Additional Instructions: you have mild anemia hemoglobin 11.7 - recheck stable, this should be followed by your doctor your CT scans were normal stay with responsible adult today - return for vomiting > 2, confusion, severe headaches or any other concerns - rest and stay hydrated today okay to wash your hair but be gentle monitor wound for redness, yellow drainage, fevers or any other concerns sutures - 6 maricarmen 5 out in 7 to 10 days - primary care, urgent care or ER Prescriptions: No Action polyethylene glycol 3350 [Miralax] 17 gram/dose powder 17 g PO DAILY Qty: 510 2RF sennosides [Natural Senna Laxative] 8.6 mg tablet 17.2 mg PO BEDTIME Qty: 90 3RF docusate sodium 100 mg capsule 200 mg PO BEDTIME Qty: 180 3RF atorvastatin 40 mg tablet 1 tab PO BEDTIME buspirone 5 mg tablet 1 tab PO BID metformin 500 mg tablet 1 tab PO QAM clonidine HCl 0.1 mg tablet PO gabapentin 600 mg tablet 1 tab PO QID lamotrigine 200 mg tablet 2 tab PO BEDTIME tolterodine 4 mg capsule,extended release 24hr 1 cap PO QAM sumatriptan succinate 25 mg tablet 1 tab PO acetaminophen [Arthritis Pain Relief (acetam)] 650 mg tablet extended release 1 tab PO Q8H PRN (Reason: fever) citalopram [Celexa] 20 mg tablet PO baclofen 10 mg tablet 2 tab PO TID PRN (Reason: muscle spasm) Premarin 0.625 mg/gram cream vaginal ibuprofen 600 mg tablet 1 tab PO Q6H PRN (Reason: pain) albuterol sulfate [ProAir HFA] 90 mcg/actuation HFA aerosol inhaler 2 puff PO Q4-6H PRN (Reason: wheezing) lisinopril 40 mg tablet 1 tab PO QAM oxycodone 5 mg tablet 1 tab PO 5XD PRN (Reason: severe pain) hydroxyzine pamoate 25 mg capsule 1 cap PO BID PRN (Reason: Dizziness) bupropion HCl [Wellbutrin SR] 200 mg tablet sustained-release 12 hr 1 tab PO BID duloxetine [Cymbalta] 30 mg capsule,delayed release(DR/EC) 1 cap PO DAILY duloxetine [Cymbalta] 60 mg capsule,delayed release(DR/EC) 1 cap PO DAILY Fish Oil 340-1,000 mg capsule 1 cap PO BID pantoprazole 40 mg tablet,delayed release (DR/EC) 1 tab PO QAM Vyvanse 40 mg capsule 40 mg PO DAILY Print Language: Estonian
--- NOTE | 2024-12-04 03:21 | ECG_ITS ---
Test Reason : FALL Blood Pressure : */* mmHG Vent. Rate : 80 BPM Atrial Rate : 80 BPM P-R Int : 154 ms QRS Dur : 92 ms QT Int : 386 ms P-R-T Axes : 24 -1 10 degrees QTcB Int : 445 ms Normal sinus rhythm Normal ECG When compared with ECG of 06-Feb-2023 14:47, Criteria for Septal infarct are no longer Present Referred By: Dorene Garces Electronically Signed By: KELSEY DURHAM MD
[2024-12-04] MEDS: Lidocaine HCl 1 % MPF 5 ML VIAL SUBCUT (03:58)
[2024-12-04] MEDS: oxyCODONE HCl Immed Release 5 MG TABLET 10 MG PO (04:06)
[2024-12-04 04:12] LABS: MANUAL DIFF FLAG NO
[2024-12-04 04:13] LABS: Hematocrit 34.0 % (37.0-47.0); Hemoglobin 11.7 g/dl (12.0-16.0); Imm Gran Abs Auto 0.06 X10*3/uL (0.00-0.03); Imm Gran Pct Auto 0.7 % (0.0-0.4); Lymphocytes Absolute Auto 2.8 X10*3/uL (1.2-4.9); Mean Corpuscular HGB Conc 34.4 g/dl (31.0-35.0); Mean Corpuscular Hemoglobin 30.3 pg (27.0-33.0); Mean Corpuscular Volume 88.1 fL (80.0-98.0); NRBC Abs Auto 0.000 X10*3/uL (0.0-0.012); NRBC Pct Auto 0.0 /100WBC (0.0-0.2); Platelet Count 269 X10*3/uL (160-400); Red Blood Count 3.86 X10*6/uL (4.20-5.50); White Blood Count 8.4 X10*3/uL (4.8-10.8)
[2024-12-04 04:25] LABS: Anion Gap 13 (12-20); Blood Urea Nitrogen 14 mg/dL (9-16); Calcium 9.1 mg/dL (8.4-10.2); Carbon Dioxide 24 mmol/L (22-29); Chloride 107 mmol/L (96-108); Creatinine Clr Calc Pharmacy 82.8; Estimated Glomerular Filt Rate > 60; Potassium 3.6 mmol/L (3.3-5.1); Sodium 140 mmol/L (135-145)
[2024-12-04 06:05] VITALS: BP 103/52; PULSE 66; TEMP 36.6; O2SAT 97
[2024-12-04 06:10] LABS: Hematocrit 34.8 % (37.0-47.0); Hemoglobin 11.9 g/dl (12.0-16.0); Mean Corpuscular HGB Conc 34.2 g/dl (31.0-35.0); Mean Corpuscular Hemoglobin 30.1 pg (27.0-33.0); Mean Corpuscular Volume 87.9 fL (80.0-98.0); NRBC Abs Auto 0.000 X10*3/uL (0.0-0.012); NRBC Pct Auto 0.0 /100WBC (0.0-0.2); Platelet Count 283 X10*3/uL (160-400); Red Blood Count 3.96 X10*6/uL (4.20-5.50); White Blood Count 9.3 X10*3/uL (4.8-10.8)
[2024-12-04 06:32] VITALS: BP 103/52; PULSE 66; RESP 16; TEMP 36.6; O2SAT 97
--- NOTE | 2024-12-04 06:34 | PC.NURSE ---
late entry- this nurse at bedside during suture and staple application with Dr Montez.
== END 2024-12-04 06:35 | disposition home or self-care (01) ==
PROVIDERS: Emergency Provider Emergency Medicine; PCP Family Medicine
DX: S01.81XA Laceration without foreign body of other part of head, initial encounter (principal); R51.9 Headache, unspecified; M54.2 Cervicalgia; F43.9 Reaction to severe stress, unspecified; I10 Essential (primary) hypertension; X58.XXXA Exposure to other specified factors, initial encounter; Y93.9 Activity, unspecified; Y92.9 Unspecified place or not applicable; Y99.8 Other external cause status; Z79.899 Other long term (current) drug therapy; F17.210 Nicotine dependence, cigarettes, uncomplicated
CPT/HCPCS: 12015; 36415; 70450; 72125; 80048; 85025; 85027; 93005; 99284; 99285; J2003

== ENCOUNTER → 2024-12-04 02:47 | Outpatient (BNV) | payer MEDICAID, SELFPAY | PROVIDERS: Emergency Provider Emergency Medicine; PCP Family Medicine; Visit Provider Radiology Vascular & Interventional Radiology | DX: M50.30 Other cervical disc degeneration, unspecified cervical region (principal); S09.90XA Unspecified injury of head, initial encounter | CPT/HCPCS: 70450; 72125 ==

== ENCOUNTER → 2024-12-04 03:21 | Outpatient (BNV) | payer MEDICAID, SELFPAY | PROVIDERS: Emergency Provider Emergency Medicine; PCP Family Medicine; Visit Provider Internal Medicine Cardiovascular Disease | DX: S01.81XA Laceration without foreign body of other part of head, initial encounter (principal); W19.XXXA Unspecified fall, initial encounter | CPT/HCPCS: 93010 ==

== ENCOUNTER 2025-01-19 07:48 | Outpatient (REF) | payer MEDICAID, SELFPAY ==
--- NOTE | ~2025-01-19 | MM_ITS ---
EXAMINATION: MM SCREENING DIGITAL BREAST TOMOSYNTHESIS, BILATERAL CLINICAL INFORMATION: Screening. Asymptomatic. COMPARISON: Comparison made to multiple prior, most recent August 06, 2023, and most remote August 17, 2014. TECHNIQUE: Digital breast tomosynthesis is performed in both the craniocaudal and mediolateral oblique views along with computer-aided detection (CAD). FINDINGS: BREAST COMPOSITION: There are scattered areas of fibroglandular density (ACR BI-RADS breast composition Category b). BILATERAL BREASTS: No significant masses, suspicious calcifications or other abnormalities are seen in either breast. MM/MM tomosynthesis screening BI IMPRESSION: BILATERAL BREASTS: Negative, no mammographic evidence of malignancy. Normal interval follow-up is recommended in 12 months. ASSESSMENT: BI-RADS 1 - Negative RECOMMENDATION: Routine annual mammography screening. FOLLOW-UP: 1 year F/U This examination should not preclude the clinical evaluation of a suspicious palpable abnormality. This patient's information was entered into a reminder system with a target due date for their next mammogram. Electronically signed by: Sheba Han MD 01/20/2025 05:17 PM EDT
[2025-01-19 11:15] LABS: MANUAL DIFF FLAG NO
[2025-01-19 11:25] LABS: Hematocrit 39.7 % (37.0-47.0); Hemoglobin 12.9 g/dl (12.0-16.0); Imm Gran Abs Auto 0.05 X10*3/uL (0.00-0.03); Imm Gran Pct Auto 0.6 % (0.0-0.4); Lymphocytes Absolute Auto 3.1 X10*3/uL (1.2-4.9); Mean Corpuscular HGB Conc 32.5 g/dl (31.0-35.0); Mean Corpuscular Hemoglobin 29.5 pg (27.0-33.0); Mean Corpuscular Volume 90.8 fL (80.0-98.0); NRBC Abs Auto 0.000 X10*3/uL (0.0-0.012); NRBC Pct Auto 0.0 /100WBC (0.0-0.2); Platelet Count 341 X10*3/uL (160-400); Red Blood Count 4.37 X10*6/uL (4.20-5.50); White Blood Count 8.8 X10*3/uL (4.8-10.8)
[2025-01-19 11:44] LABS: Alanine Aminotransferase 36 U/L (0-31); Albumin Level 4.7 g/dL (3.5-5.0); Alkaline Phosphatase 83 U/L (39-117); Aspartate Amino Transferase 25 U/L (5-31); Total Protein 7.0 g/dL (6.5-8.0)
[2025-01-19 11:53] LABS: Alanine Aminotransferase 36 U/L (0-31); Albumin Level 4.7 g/dL (3.5-5.0); Alkaline Phosphatase 80 U/L (39-117); Anion Gap 12 (12-20); Aspartate Amino Transferase 30 U/L (5-31); Blood Urea Nitrogen 17 mg/dL (9-16); Calcium 9.9 mg/dL (8.4-10.2); Carbon Dioxide 28 mmol/L (22-29); Chloride 107 mmol/L (96-108); Cholesterol 238 mg/dL (<200); Estimated Glomerular Filt Rate > 60; HDL Cholesterol 53 mg/dL (>40); Iron 79 mcg/dL (30-160); Percent Iron Saturation 21 % (15-50); Potassium 4.0 mmol/L (3.3-5.1); Sodium 143 mmol/L (135-145); Total Iron Binding Capacity 373 mcg/dL (228-428); Total Protein 7.2 g/dL (6.5-8.0); Triglycerides 341 mg/dL (<150); Unsaturated Iron Binding 294 ug/dL
[2025-01-19 12:04] LABS: Free T4 (Free Thyroxine) 0.82 ng/dL (0.71-1.85)
[2025-01-19 12:08] LABS: Hemoglobin A1C 173.1927 umol/L; Total Hemoglobin (HGBA1C) 3673.2174 umol/L
[2025-01-19 12:11] LABS: Ferritin 11 ng/mL (10-250); Free T4 (Free Thyroxine) 0.85 ng/dL (0.71-1.85); Thyroid Stimulating Hormone 1.47 uIU/mL (0.32-4.0)
[2025-01-19 12:50] LABS: Folate 13.2 ng/mL (> or = 4.0); Vitamin B12 458 pg/mL (200-900)
[2025-01-20 07:53] LABS: ~HepC Num1 0.08 S/CO (0.00-0.79); ~Hepatitis C Antibody Nonreactive (Nonreactive)
[2025-01-20 08:04] LABS: HBS Num1 1.81 mIU/mL (0-7.99); HBc Num1 0.08 S/CO (0.00-0.79); HBsAGNum1 0.46 S/CO (0.00-0.99); HIV Num 1 0.07 S/CO (0.00-0.99); Hepatitis B Surface Antigen Negative (Negative); ~HepC Num1 0.08 S/CO (0.00-0.79); ~Hepatitis B Surface Antibody NONREACTIVE (Nonreactive); ~Hepatitis C Antibody Nonreactive (Nonreactive)
[2025-01-23 07:51] LABS: ~Hepatitis A Antibody IgG 0.35 S/CO (0.00-0.99)
== END 2025-01-19 07:49 | disposition home or self-care (01) ==
LOC: HO.MAMMO 07:48
PROVIDERS: PCP Family Medicine; Visit Provider Family Medicine
DX: Z12.31 Encounter for screening mammogram for malignant neoplasm of breast (principal); E11.9 Type 2 diabetes mellitus without complications; I10 Essential (primary) hypertension; K76.0 Fatty (change of) liver, not elsewhere classified; F31.9 Bipolar disorder, unspecified; R51.9 Headache, unspecified; N39.46 Mixed incontinence; G47.33 Obstructive sleep apnea (adult) (pediatric); G89.29 Other chronic pain; M54.50 Low back pain, unspecified; E78.49 Other hyperlipidemia; E34.8 Other specified endocrine disorders; Z00.00 Encounter for general adult medical examination without abnormal findings
CPT/HCPCS: 36415; 77063; 77067; 80048; 80061; 80076; 82043; 82105; 82306; 82570; 82607; 82728; 82746; 83036; 83540; 84439; 84443; 85025; 86592; 86704; 86706; 86708; 86803; 87340; 87389

== ENCOUNTER → 2025-01-19 08:00 | Outpatient (BNV) | payer MEDICAID, SELFPAY | PROVIDERS: PCP Family Medicine; Visit Provider Radiology Body Imaging | DX: Z12.31 Encounter for screening mammogram for malignant neoplasm of breast (principal) | CPT/HCPCS: 77063; 77067 ==